=== PATIENT | male | born 1935 | race Caucasian/White ===

== ENCOUNTER 2017-02-03 14:32 | Emergency (ER) | payer MEDICARE, OTHER ==
--- NOTE | 2017-02-03 16:27 | ED Physician Documentation ---
History of Present Illness - Stated complaint Stated Complaint: R ANKLE INJ - Chief complaint Chief Complaint: Ext Problem - Additonal information Additional information: hx from pt 81 male fell off raised brick wall in his yard and onto his right side injuring R hip knee and ankle, but also hitting the left posterior side of his head and he is on coumadin no LOC no BURNS no neck pain no CP no AP no numbness or weakness Review of Systems Eyes: denies: Loss of vision Ears: denies: Drainage/discharge Nose: denies: Epistaxis Cardiac: denies: Chest pain / pressure Respiratory: denies: Dyspnea GI: denies: Abdominal Pain, Nausea, Vomiting Musculoskeletal: reports: Extremity pain. denies: Neck pain Neurologic: reports: Head injury. denies: Syncope, Headache Endocrine: reports: Easy bruising / bleeding Immunocompromised: denies: Immunocompromised PD PAST MEDICAL HISTORY - Past Medical History Cardiovascular: Coronary artery disease Respiratory: Sleep apnea, CPAP use Neuro: Motion sickness Endocrine/Autoimmune: None GI: GERD : Kidney stones HEENT: Chronic hearing loss Psych: None Musculoskeletal: Gout Derm: None - Past Surgical History Past Surgical History: Yes General: Hiatal hernia repair Cardiovascular: CABG, Valve replacement - Present Medications Home Medications: Ambulatory Orders Medication Instructions Recorded Confirmed Colchicine [Colcrys] 0.6 mg PO DAILY 03/08/14 02/03/17 Omeprazole [PriLOSEC] 20 mg PO BID 03/08/14 02/03/17 Potassium Citrate [Urocit-K] 10 meq PO DAILY 03/08/14 02/03/17 Probenecid 500 mg PO DAILY 03/08/14 02/03/17 Doxazosin [Cardura] 4 mg PO DAILY 12/18/14 02/03/17 Simvastatin [Zocor] 40 mg PO QPM 12/18/14 02/03/17 Loratadine [Loratadine] 10 mg PO DAILY 06/21/16 02/03/17 HYDROcod/ACETAM 5/325 [Teaneck 5/325] 1 ea PO Q6H PRN #15 tablet 02/03/17 Metoprolol Succinate [Toprol Xl] 50 mg PO DAILY 02/03/17 02/03/17 Warfarin Sodium [Coumadin] 7.5 mg PO DAILY 02/03/17 02/03/17 - Allergies Allergies/Adverse Reactions: Allergies Allergy/AdvReac Type Severity Reaction Status Date / Time No Known Drug Allergies Allergy Verified 02/03/17 17:35 - Social History Does the pt smoke?: No Smoking Status: Former smoker Does the pt drink ETOH?: No Does the pt have substance abuse?: No - Immunizations Immunizations are current?: Yes - POLST Patient has POLST: No PD ED PE NORMAL - Vitals Vital signs reviewed: Yes - General General: Alert and oriented X 3 - HEENT HEENT: No: Atraumatic (small abrasion high posterior parietal region, no steiner sign) - Neck Neck: No bony TTP - Cardiac Cardiac: RRR - Respiratory Respiratory: No respiratory distress, Clear bilaterally - Abdomen Abdomen: Soft, Non tender - Extremities Extremities: Other (RLE: hip TTP greater troch not short or roatetd able to range with mild pain, femur NT, knee TTP anselmo jt line, patella TTP small effusion no ACL MCL LCL laxity, prox tib fib NT, ankle effusion lat > medial, TTP anselmo mall lateral . medial, pain to ROM no laxity, foot inc 5th MT NT, MSV intact) Results - Vitals Vitals: Vital Signs - 24 hr 02/03/17 02/03/17 14:47 17:41 Temperature 36.6 C 36.6 C Heart Rate 67 71 Respiratory 16 18 Rate Blood Pressure 118/66 123/69 O2 Saturation 95 95 Oxygen O2 Source Room air - Labs Labs: Laboratory Tests 02/03/17 15:38 Whole Blood INR 2.2 H - Rads (name of study) CTH Radiology: See rad report (no acute) hip Radiology: See rad report (no acute) knee Radiology: See rad report (no acute) ankle Radiology: See rad report (velazco B lateral mall fx, non displaced posterior tibial lip, disruption or lateral ankle mortise with effusion) Departure - Departure Disposition: 01 Home, Self Care Clinical Impression: Ankle fracture, right Qualifiers: Encounter type: initial encounter Fracture type: closed Qualified Code(s): S82.891A - Other fracture of right lower leg, initial encounter for closed fracture Condition: Good Instructions: ED Fx Ankle General, ED Splint Care Fiberglass Follow-Up: [facility] [Provider Group] Prescriptions: HYDROcod/ACETAM 5/325 [Teaneck 5/325] 1 ea PO Q6H PRN #15 tablet PRN Reason: Severe Pain
--- NOTE | 2017-02-03 17:00 | CT Preliminary Report ---
Exam: CT Head W/O IMPRESSION: Generalized age-related cortical atrophic changes without evidence of acute intracranial abnormality. [facility] SITE ID: [id number]
--- NOTE | 2017-02-03 17:03 | CT Report ---
EXAM: CT HEAD EXAM DATE: 02/03/2017 04:45 PM. CLINICAL HISTORY: Fall head injury coumadin. COMPARISON: None. TECHNIQUE: Multiaxial CT images were obtained from the foramen magnum to the vertex. IV contrast: Non e. Reformats: Coronal. In accordance with CT protocol optimization, one or more of the following dose reduction techniques w ere utilized for this exam: automated exposure control, adjustment of mA and/or KV based on patient s ize, or use of iterative reconstructive technique. FINDINGS: Parenchyma: No intraparenchymal hemorrhage. No evidence of mass, midline shift, or CT findings of acu te infarction. Jones-white differentiation is distinct. 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 Extraaxial Spaces: Normal for age. No subdural or epidural collections identified. Ventricles: The ventricles and cortical sulci are enlarged, consistent with age-related tissue loss. Sinuses: Imaged paranasal sinuses, orbits, and mastoids show no significant abnormality. Bones: No evidence of fracture or calvarial defect. IMPRESSION: Generalized age-related cortical atrophic changes without evidence of acute intracranial abnormality. [facility] Referring Provider Line: [phone] SITE ID: [id number]
--- NOTE | 2017-02-03 17:31 | XRAY Preliminary Report ---
Exam: XR Hip w/Pelvis 2-3V RT IMPRESSION: Normal pelvis and hip radiography. [facility] SITE ID: [id number]
--- NOTE | 2017-02-03 17:32 | XRAY Preliminary Report ---
Exam: XR Knee 4 View RT IMPRESSION: Normal knee radiography. [facility] SITE ID: [id number]
--- NOTE | 2017-02-03 17:35 | XRAY Preliminary Report ---
Exam: XR Ankle 3 View RT IMPRESSION: 1. Bacon type B lateral malleolar fracture. 2. Nondisplaced fracture posterior tibial lip. 3. Disruption of the lateral ankle mortise with moderate ankle effusion. [facility] SITE ID: [id number]
[2017-02-03 17:42] VITALS: BP 123/69
--- NOTE | 2017-02-03 17:43 | XRAY Report ---
EXAM: RIGHT KNEE RADIOGRAPHY EXAM DATE: 02/03/2017 05:09 PM. CLINICAL HISTORY: Fall right knee pain. COMPARISON: None. TECHNIQUE: 4 views. FINDINGS: Bones: Normal. No fractures or bone lesions. Joints: Normal. No effusion. No subluxations. Soft Tissues: Normal. No soft tissue swelling. IMPRESSION: Normal knee radiography. [facility] Referring Provider Line: [phone] SITE ID: [id number]
--- NOTE | 2017-02-03 17:43 | XRAY Report ---
EXAM: RIGHT HIP AND PELVIS RADIOGRAPHY EXAM DATE: 02/03/2017 05:09 PM. HISTORY: Fall right hip pain. COMPARISONS: CT abdomen and pelvis 09/22/2009. TECHNIQUE: 1 view of the pelvis and 1 view of the hip. FINDINGS: Bones: Normal. No fracture or bone lesion. Joints: The bilateral hip, pubis symphysis, and sacroiliac joints are preserved. Soft Tissues: Normal. No soft tissue swelling. IMPRESSION: Normal pelvis and hip radiography. [facility] Referring Provider Line: [phone] SITE ID: [id number]
--- NOTE | 2017-02-03 17:44 | XRAY Report ---
EXAM: RIGHT ANKLE RADIOGRAPHY EXAM DATE: 02/03/2017 05:08 PM. CLINICAL HISTORY: Fall right ankle pain. COMPARISON: None. TECHNIQUE: 3 views. FINDINGS: Bones: Acute vertical nondisplaced fracture posterior tibial lip, 10 mm AP dimension. Acute oblique fracture involving the distal fibular diaphysis and metaphysis, extending 3 cm superior to the tibial plafond and inferiorly to the level of the talar dome with 3 mm maximum uniform displa cement. Joints: Widening of the lateral ankle mortise. Moderate ankle effusion. Soft Tissues: Marked edema over the lateral malleolus. IMPRESSION: 1. Bacon type B lateral malleolar fracture. 2. Nondisplaced fracture posterior tibial lip. 3. Disruption of the lateral ankle mortise with moderate ankle effusion. [facility] Referring Provider Line: [phone] SITE ID: [id number]
[2017-02-03] MEDS ORDERED: HYDROcod/ACETAM 5/325 MG TABLET PO STA (18:13)
[2017-02-03] MEDS ORDERED: HYDROcod/ACETAM 5/325 MG TABLET ONE (18:31)
== END 2017-02-03 18:41 | disposition home or self-care (01) ==
LOC: ED 14:32
DX: S82.391A Other fracture of lower end of right tibia, initial encounter for closed fracture (principal); S82.61XA Displaced fracture of lateral malleolus of right fibula, initial encounter for closed fracture; W17.89XA Other fall from one level to another, initial encounter; Y92.017 Garden or yard in single-family (private) house as the place of occurrence of the external cause; I25.10 Atherosclerotic heart disease of native coronary artery without angina pectoris; K21.9 Gastro-esophageal reflux disease without esophagitis; G47.30 Sleep apnea, unspecified; M10.9 Gout, unspecified; Z79.01 Long term (current) use of anticoagulants; Z87.442 Personal history of urinary calculi; Z87.891 Personal history of nicotine dependence
CPT/HCPCS: 70450; 73502; 73564; 73610; 85610; 99283; A9270

== ENCOUNTER 2017-12-27 13:18 | Outpatient (CLI) | payer MEDICARE, OTHER | END 2017-12-27 13:19 | disposition home or self-care (01) | LOC: DI.N 13:18 | PROVIDERS: ATTEND Internal Medicine | DX: Z53.9 Procedure and treatment not carried out, unspecified reason (principal) ==

== ENCOUNTER 2017-12-29 11:53 | Outpatient (CLI) | payer MEDICARE, OTHER ==
--- NOTE | 2017-12-29 13:25 | XRAY Report ---
Procedure Date: 12/29/2017 Accession Number: [id number] / [id number] Procedure: XRN - Chest 2 View X-Ray CPT Code: 82768 FULL RESULT: EXAM: Chest 2 View X-Ray DATE: 12/29/2017 12:10 PM CLINICAL HISTORY: cough COMPARISON: 06/20/2016 TECHNIQUE: 2 views. FINDINGS: Lungs/Pleura: Lungs are hyperinflated, compatible with COPD. Calcified granulomas are stable. No focal consolidation, effusion, or pneumothorax. Mediastinum: Stable postoperative changes. Other: None. IMPRESSION: Hyperinflation, compatible with COPD. No evidence of acute cardiopulmonary disease. [facility]
== END 2017-12-29 11:54 | disposition home or self-care (01) ==
LOC: DI.N 11:53
PROVIDERS: ATTEND Internal Medicine
DX: R91.8 Other nonspecific abnormal finding of lung field (principal)
CPT/HCPCS: 71046

== ENCOUNTER 2019-04-02 10:30 | Outpatient (CLI) | payer MEDICARE, OTHER ==
--- NOTE | 2019-04-03 12:48 | XRAY Report ---
Reason: CALCULUS OF KIDNEY Procedure Date: 04/02/2019 Accession Number: [id number] / [id number] Procedure: XRN - Abdomen 1 View X-Ray CPT Code: 46970 FULL RESULT: EXAM: ABDOMEN RADIOGRAPHY EXAM DATE: 04/02/2019 11:30 AM. CLINICAL HISTORY: Calculus of kidney. COMPARISON: XR ABDOMEN AP (KUB) 12/04/2009 2:35 PM ABD/PEL 09/22/2009 10:37 AM. TECHNIQUE: 1 view. FINDINGS: Bowel Gas Pattern: Within normal limits. No dilated loops. Other: Calcifications project over the left renal hilum, largest 2.6 cm. IMPRESSION: Multiple calcifications over the left renal hilum. [facility]
== END 2019-04-02 10:31 | disposition home or self-care (01) ==
LOC: DI.N 10:30
PROVIDERS: ATTEND Urology
DX: N20.0 Calculus of kidney (principal)
CPT/HCPCS: 74018

== ENCOUNTER 2019-06-27 10:29 | Outpatient (CLI) | payer MEDICARE, OTHER ==
--- NOTE | 2019-06-27 14:40 | XRAY Report ---
Reason: R knee pain Procedure Date: 06/27/2019 Accession Number: [id number] / [id number] Procedure: XRN - Knee 3 View RT CPT Code: Final Report FULL RESULT: EXAM: RIGHT KNEE RADIOGRAPHY EXAM DATE: 06/27/2019 11:06 AM. CLINICAL HISTORY: Right knee pain. COMPARISON: KNEE 4 VIEW RT 02/03/2017 4:41 PM. TECHNIQUE: 3 views. FINDINGS: Bones: Seen on the lateral view only projecting in the superior margin of the patella is a small thin linear calcific or ossific fragment which is nonspecific, 2 mm long, possibly insertional tendinitis or degenerative in nature but a small avulsion donor fragment is not entirely excluded. No fractures or bone lesions. Joints: There is a moderate joint effusion. No dislocation. Soft Tissues: Vascular calcifications are noted. IMPRESSION: Nonspecific calcific fragment seen on the lateral view only along the superior margin of the patella and moderate-sized joint effusion. [facility]
--- NOTE | 2019-06-27 14:42 | XRAY Report ---
Reason: PAIN Procedure Date: 06/27/2019 Accession Number: [id number] / [id number] Procedure: XRN - Tib/Fib RT CPT Code: Final Report FULL RESULT: EXAM: RIGHT TIBIA/FIBULA RADIOGRAPHY EXAM DATE: 06/27/2019 11:07 AM. CLINICAL HISTORY: Pain. COMPARISON: KNEE 3 VIEW RT 06/27/2019 11:06 AM ANKLE 3 VIEW RT 02/03/2017 4:41 PM. TECHNIQUE: 2 views. FINDINGS: Bones: A lateral plate and screw construct with 6 interlocking screws and 2 interfragmentary screws is noted in the distal fibula with the previous fracture no longer visible. No acute fracture is seen. Joints: For findings of the right knee, see separate report. Ankle is within normal limits as visualized. Soft Tissues: Vascular calcifications are noted. IMPRESSION: No fracture of tibia or fibula. [facility]
== END 2019-06-27 10:30 | disposition home or self-care (01) ==
LOC: DI.N 10:29
PROVIDERS: ATTEND Internal Medicine
DX: M25.561 Pain in right knee (principal)

== ENCOUNTER 2020-01-16 10:35 | Outpatient (CLI) | payer MEDICARE, OTHER ==
[2020-01-16 11:56] VITALS: BP 126/68
--- NOTE | 2020-01-16 11:57 | SLEEP CARE CONSULTATION ---
Information from patient questionnaire entered by Quita Barnard. I have reviewed and concur with the information entered by Quita Barnard. This document represents the service I personally performed and the decisions made by me, Raine Umaña, RN, MSN, ROPE TIER. History of Present Illness Service Date and Time: 01/16/2020 1035 Reason for Visit: New patient, Previously diagnosed sleep apnea (Very Severe - AHI - 74.9), sleep apnea on CPAP therapy, Re-establish care Chief Complaint: reports: Other (need new CPAP/ his device stopped working and is currently using a loaner from ) Duration of Symptoms: 23 years Usual bedtime: 9 pm Time it takes to fall asleep: a few minutes Snores at night: Yes (not with CPAP) Observed to quit breathing while asleep: No (with CPAP ) Sleeps alone due to snoring: Yes Number of times waking at night: 1-2 Reasons for waking at night: reports: Bathroom Toss, Turn, or Twitch while sleeping: No Recalls having dreams: No Usually gets out of bed at: 5 am Feels refreshed in the morning: Yes Morning headache: No Sleepy or fatigued during the day: No Ever fallen asleep while driving: No Takes day naps: Yes (every other 15-60 minutes without CPAP. ) Dreams during day naps: No Prior sleep studies: Yes Year and Where: 2006 - [facility] Sleep - Parasomnia Symptoms Ever been unable to move upon waking from sleep: No Walks in sleep: No Talks in sleep: No Ever acted out dreams in sleep: No Ever felt weak in the knees when startled or emotional: No Bothered by creepy, crawly, restless sensations in legs: No Problems with memory or concentration: No CPAP Compliance Data - Data Reviewed with Patient Average duration of nightly device use: SD CHIP is old [employer] Card style, can not be downloaded here Subjective Patient concerns: denies: aerophagia, mask discomfort, air blowing in eyes, mask leak noise, condensation in mask/hose, nasal congestion, dry mouth, nose, throat, epistaxis Observed to snore while using device: No Current pressure setting perceived as: comfortable (14 cmH20) On therapy, patient: reports: sleeping better, awakening more refreshed, being more awake and alert during the day, more rested overall. denies: drowsiness while driving Initial [place] Sleepiness Scale score: 14 (in 2007) Current [place] Sleepiness Scale score: 4 Past Medical History Past Medical History: reports: Gout. denies: Hypertension, Dysphagia, Claustrophobia, Congestive Heart Failure, Diabetes, Stroke, Arthritis, Coronary Heart Disease, Insulin resistance, Arrythmia, Hypothyroidism, Fibromyalgia, Anemia, Anxiety, Impotence, Asthma, Depression, Emphysema, Mood disorder, GERD, Attention deficit, Other (atrial fibrillation 3 years ago - prostrate hypertrophy- high cholesterol ) Social History The patient's occupation is a Retired. Patient is and lives in [place]. Have you smoked in the past 12 months: No Quit date: 40 years ago Alcohol use: No Caffeine use: No Family History Family history of sleep disordered breathing: No Allergies and Home Medications Known drug allergies: No Home medication list reviewed: Yes Allergy and home medication list: patient states he left list at home : verbal recall of daily meds is as follows Zocor HS Probenecid - gout Colchicine -gout potassium citrate new heart rate pill doxazocin - prostrate Review of Systems Weight loss over past 5 years: 10-15 Cardiovascular: reports: other (arrhythmia - atrial fibrillation once 3 years ago). denies: high blood pressure, palpitations, chest pain, irregular heart rate or pulse, leg or foot swelling, have to sleep sitting up Respiratory: denies: shortness of breath, wheeze, sputum production, chronic cough, other Gastrointestinal: denies: heartburn, difficulty swallowing, nausea, vomitting, diarrhea, abdominal pain, other Urinary: reports: incontinence. denies: frequency, urgency, impotence, other Neurological: denies: headaches, seizure, head trauma, disorientation, speech dysfunction, gait or balance problems, fainting or unconsciousness, other Psychiatric: denies: Attention Deficit Hyperactivity, anxiety, depression, mood disorder, claustrophobia, other Ear/Nose/Throat: denies: nasal congestion, sinus problems, nose bleeds, dry mouth/throat, hoarseness, injury to nose, tonsillectomy, wisdom teeth removed, other Endocrine: denies: thyroid disease, history of goiter, sluggishness, too hot or cold, excessive thirst, increased appetite, increased urination, unexplained weakness, other Musculoskeletal: denies: joint pain, neck pain, back pain, joint swelling, muscle pain or cramping, mobility problems, other Physical Exam Blood Pressure: 126/68 Cuff size: long Heart Rate: 75 O2 Saturation: 90 Height: 5 ft 9 in Weight: 192 lb 3.2 oz Body Mass Index: 28.3 BMI Classification: Overweight Neck circumference: 17 HEENT: No craniofacial malformation Nostrils: patent to airflow Mouth and throat: narrow oropharynx Soft palate: long Hard palate: normal Uvula: normal Uvula visualization: 25% Mallampati Class III Tongue: normal in size Tonsils: small Chin and jaw: normal size and position Heart: regular rate and rhythm Lungs: clear bilaterally Abdomen: soft Extremities: no edema or clubbing Impression and Plan 1. Obstructive Sleep Apnea-Hypopnea Syndrome, very severe, with unknown treatment compliance and apnea control as data card old style and unable to read. On CPAP therapy, the patient has better sleep quality and is more rested overall. He is currently using a loaner CPAP as his stopped working. It is the original CPAP about 10-12 years old per patient. Thus I will update his CPAP and set at [id number] as he thinks his CPAP is set at [id number]. Last manual titration study showed best pressure at [id number] in 2011. Process for compliance follow up appointment discussed as well as annual follow up to check effective of treatment and to update his CPAP supplies prescription. Patient's apnea severity and rationale for treatment to reduce apnea, improve sleep quality and reduce cardiovascular and cerebrovascular events was reviewed. I also reviewed the benefit of consistent device use of CPAP fo his arrhythmia. I also advised patient to use CPAP with his naps as well with rationale discussed. * Update CPAP * Changeauto CPAP pressure to 12-16 cmH2O * Notify me if snoring with mask or feeling that the pressure is too much or too little * Attempt to lose some weight * Call this office if any problems using CPAP * Return for follow up in one month after obtains CPAP , or sooner if concerns arise Time Spent with Patient (minutes): 34
== END 2020-01-16 10:36 | disposition home or self-care (01) ==
LOC: SC 10:35
PROVIDERS: ATTEND Nurse Practitioner Family
DX: G47.33 Obstructive sleep apnea (adult) (pediatric) (principal); E66.3 Overweight; Z68.28 Body mass index [BMI] 28.0-28.9, adult
CPT/HCPCS: 99203; G0463; 99212

== ENCOUNTER 2020-04-04 09:32 | Outpatient (CLI) | payer MEDICARE, OTHER ==
--- NOTE | 2020-04-04 10:04 | SLEEP CARE CONSULTATION ---
Information from patient questionnaire entered by Quita Barnard. I have reviewed and concur with the information entered by Quita Barnard. This document represents the service I personally performed and the decisions made by me, Flor Guevara ARNP. History of Present Illness Service Date and Time: 04/04/2020 0932 Previous diagnosis: Very Severe, Obstructive Sleep Apnea-Hypopnea Syndrome AHI: 74.9 (in 2006) Reason for follow up: first compliance after device update Equipment type: CPAP Equipment obtained from: [employer] (getting supplies as needed) Mask style: Full face Backup mask available: Yes (old mask) Last cushion change: couple months Prior sleep studies: Yes Year and Where: 2006 [facility] Sleep Type of Sleep Study: Polysomnography HPI additional information: SHANDRA RASMUSSEN was diagnosed to have very severe, AHI 74.9, obstructive sleep apnea-hypopnea syndrome and returned today for CPAP therapy first compliance after device update follow-up. Sleep Study - Results Prior sleep studies: Yes Year and Where: 2006 [facility] Sleep CPAP Compliance Data - Data Reviewed with Patient Average duration of nightly device use: 6.7 Compliance rate %: 97 Current pressure setting (cmH2O): 12-16 Humidity settin Average residual AHI: 18.1 Compliance data discussion: On discussion with patient, he has seen a number on his machine that shows 9.7 and he thinks this is the pressure which is too low. He does not feel that the mask is uncomfortable and he changes from too low to comfortable when talking about his CPAP pressure. Subjective Patient concerns: reports: mask leak noise (sometimes if on his side), dry mouth, nose, throat (dry mouth). denies: aerophagia, mask discomfort, air blowing in eyes, condensation in mask/hose, nasal congestion, epistaxis, other Observed to snore while using device: No Current pressure setting perceived as: too low On therapy, patient: reports: sleeping better, awakening more refreshed, being more awake and alert during the day, more rested overall. denies: drowsiness while driving Initial [place] Sleepiness Scale score: 14 (in 2006) Current [place] Sleepiness Scale score: 5 Allergies and Home Medications Drug allergies reviewed: Yes (NKDA) Home medication list reviewed: Yes (no changes) Review of Systems Review of systems same as previous: Yes (no changes) Physical Exam Heart Rate: 78 O2 Saturation: 91 Height: 5 ft 9 in Weight: 197 lb Body Mass Index: 29.0 BMI Classification: Overweight Impression and Plan 1. Obstructive Sleep Apnea-Hypopnea Syndrome, very severe, with good treatment compliance and poor apnea control with an elevated residual AHI of 18.1 however this is much lower than his AHI 74.9 on his previous study. On CPAP therapy, there is improved sleep quality and feels more rested overall. Patient having some oral dryness and he was advised to increase the humidity setting on his machine. Oral dryness can be reduced by adjusting humidity setting higher or heated hose lower or by adjusting both settings. I explained to patient how to adjust this on his machine. Patient's apnea severity and rationale for treatment to reduce apnea, improve sleep quality and reduce cardiovascular and cerebrovascular events was reviewed. I also reviewed the benefit of consistent device use of CPAP for his arrhythmia. * Change autoCPAP pressure to 16-18 cmH2O * Notify me if snoring with mask or feeling that the pressure is too much or too little * Attempt to lose weight * Call this office if any problems using CPAP * Return for follow up in 1-2 months, or sooner if concerns arise Visit Type: In Office Time Spent with Patient (minutes): 18 Provider Statement: I spent 100% of the Face to Face Visit with the patient with greater than 50% spent counseling the patient and coordination of care.
== END 2020-04-04 09:33 | disposition home or self-care (01) ==
LOC: SC 09:32
PROVIDERS: ATTEND Nurse Practitioner Family
DX: G47.33 Obstructive sleep apnea (adult) (pediatric) (principal); E66.3 Overweight; Z68.29 Body mass index [BMI] 29.0-29.9, adult
CPT/HCPCS: 99213; G0463; 99212

== ENCOUNTER 2020-05-05 09:27 | Outpatient (CLI) | payer MEDICARE, OTHER | END 2020-05-05 09:28 | disposition home or self-care (01) | LOC: LAB 09:27 | PROVIDERS: ATTEND Internal Medicine | DX: I48.91 Unspecified atrial fibrillation (principal) | CPT/HCPCS: 85610 ==

== ENCOUNTER 2020-06-03 09:28 | Outpatient (CLI) | payer MEDICARE, OTHER ==
--- NOTE | 2020-06-03 10:00 | SLEEP CARE CONSULTATION ---
Information from patient questionnaire entered by Quita Barnard. I have reviewed and concur with the information entered by Quita Barnard. This document represents the service I personally performed and the decisions made by , Flor Guevara ARNP. History of Present Illness Service Date and Time: 06/03/2020927 Previous diagnosis: Very Severe, Obstructive Sleep Apnea-Hypopnea Syndrome AHI: 74.9 (in 2006) Reason for follow up: other (2 month with pressure change) Equipment type: CPAP Equipment obtained from: [employer] (no supplies received yet) Mask style: Full face Backup mask available: Yes (old mask) Last cushion change: last week Prior sleep studies: Yes Year and Where: 2006 - [facility] Sleep HPI additional information: SHANDRA RASMUSSEN was diagnosed to have very severe, AHI 74.9, obstructive sleep apnea-hypopnea syndrome and returned today for CPAP therapy two month pressure change follow-up. CPAP Compliance Data - Data Reviewed with Patient Average duration of nightly device use: 6.95 Compliance rate %: 100 (60 days) Current pressure setting (cmH2O): 16-18 Humidity settin Average residual AHI: 17.6 Central apnea: 0.1 Obstructive apnea: 15.2 Subjective Patient concerns: denies: aerophagia, mask discomfort, air blowing in eyes, mask leak noise, condensation in mask/hose, nasal congestion, dry mouth, nose, throat, epistaxis, other Observed to snore while using device: No Current pressure setting perceived as: comfortable On therapy, patient: reports: sleeping better, awakening more refreshed, being more awake and alert during the day, more rested overall. denies: drowsiness while driving Initial [place] Sleepiness Scale score: 14 (in 2006) Current [place] Sleepiness Scale score: 8 Allergies and Home Medications Drug allergies reviewed: Yes (NKDA) Home medication list reviewed: Yes (no changes) Review of Systems Review of systems same as previous: Yes (no changes) Physical Exam Heart Rate: 81 O2 Saturation: 95 Height: 5 ft 9 in Weight: 197 lb Body Mass Index: 29.0 BMI Classification: Overweight Impression and Plan 1. Obstructive Sleep Apnea-Hypopnea Syndrome, very severe, with good treatment compliance and poor apnea control with an elevated residual AHI of 17.6. This is a good improvement on his original AHI 74.9. On CPAP therapy, the patient has better sleep quality and is more rested overall. I will adjust his APAP pressure to 18-20 cm H20 to try to reduce his residual AHI. Patient states he is not sure his new machine obtained in January is getting up to adequate pressure because the readout only shows pressures up to 9-10 cm H2O. I will have his machine evaluated to ensure it is working properly. He will follow up in 1-2 months for reevaluation. He states that he has not gotten any supplies from current DME. I will have him talk to event coordinator marketing and sales for information on ordering his supplies. Patient's apnea severity and rationale for treatment to reduce apnea, improve sleep quality and reduce cardiovascular and cerebrovascular events was reviewed. I also reviewed the benefit of consistent device use of CPAP for his arrhythmia. * Change auto CPAP pressure to 18-20 cmH2O * Check machine for malfunction * Notify me if snoring with mask or feeling that the pressure is too much or too little * Attempt to lose weight * Call this office if any problems using CPAP * Return for follow up in 1-2 months , or sooner if concerns arise Counseling Topics: Spare mask, Weight loss health impact Visit Type: In Office Time Spent with Patient (minutes): 19 Provider Statement: I spent 100% of the Face to Face Visit with the patient with greater than 50% spent counseling the patient and coordination of care.
== END 2020-06-03 09:29 | disposition home or self-care (01) ==
LOC: SC 09:28
PROVIDERS: ATTEND Nurse Practitioner Family
DX: G47.33 Obstructive sleep apnea (adult) (pediatric) (principal); E66.3 Overweight; Z68.29 Body mass index [BMI] 29.0-29.9, adult
CPT/HCPCS: 99213; G0463; 99212

== ENCOUNTER 2020-07-03 09:30 | Outpatient (CLI) | payer MEDICARE, OTHER ==
--- NOTE | 2020-07-03 10:12 | SLEEP CARE CONSULTATION ---
Information from patient questionnaire entered by Quita Barnard. I have reviewed and concur with the information entered by Quita Barnard. This document represents the service I personally performed and the decisions made by , Flor Guevara ARNP. History of Present Illness Service Date and Time: 07/03/2020929 Previous diagnosis: Very Severe, Obstructive Sleep Apnea-Hypopnea Syndrome AHI: 74.9 (in 2006) Reason for follow up: one month (with pressure change) Equipment type: CPAP Equipment obtained from: [employer] (getting supplies as needed) Mask style: Full face Backup mask available: Yes (old mask) Last cushion change: 1 month Prior sleep studies: Yes Year and Where: 2006 - [facility] Sleep HPI additional information: SHANDRA RASMUSSEN was diagnosed to have very severe, AHI 74.9, obstructive sleep apnea-hypopnea syndrome and returned today for CPAP therapy one month pressure change follow-up. CPAP Compliance Data - Data Reviewed with Patient Average duration of nightly device use: 7 hr 19 min Compliance rate %: 100 Current pressure setting (cmH2O): 18-20 Humidity settin Average residual AHI: 11.4 (unknown events 6.9) Central apnea: 0.1 Obstructive apnea: 4.3 Subjective Patient concerns: denies: aerophagia, mask discomfort, air blowing in eyes, mask leak noise, condensation in mask/hose, nasal congestion, dry mouth, nose, throat, epistaxis, other Observed to snore while using device: No Current pressure setting perceived as: comfortable On therapy, patient: reports: sleeping better, awakening more refreshed, being more awake and alert during the day, more rested overall. denies: drowsiness while driving Initial [place] Sleepiness Scale score: 14 (in 2006) Current [place] Sleepiness Scale score: 4 Allergies and Home Medications Drug allergies reviewed: Yes (NKDA) Home medication list reviewed: Yes (no changes) Review of Systems Review of systems same as previous: Yes (no changes) Physical Exam Heart Rate: 82 O2 Saturation: 96 Height: 5 ft 9 in Weight: 198 lb Body Mass Index: 29.2 BMI Classification: Overweight Impression and Plan 1. Obstructive Sleep Apnea-Hypopnea Syndrome, very severe, with excellent treatment compliance and poor apnea control with elevated residual AHI at 11.4. On CPAP therapy, the patient has better sleep quality and is more rested overall. The patients pressure will be changed to autoCPAP 19-20 cmH20 For elevation of residual AHI. Patient advised to contact me if pressure change is uncomfortable so that it can be adjusted. Goals for apnea control discussed. Patient's apnea severity and rationale for treatment to reduce apnea, improve sleep quality and reduce cardiovascular and cerebrovascular events was reviewed. I also reviewed the benefit of consistent device use of CPAP for arrhythmia. I talked to patient about need a possible titration study but he does not want to stay overnight at the sleep lab for this study. We will try the higher pressure change and I will follow up with him later. * Change auto CPAP pressure to 19-20 cmH2O * Notify me if snoring with mask or feeling that the pressure is too much or too little * Attempt to lose weight * Call this office if any problems using CPAP * Return for follow up in 1-2 months, or sooner if concerns arise Counseling Topics: Spare mask, Weight loss health impact Visit Type: In Office Time Spent with Patient (minutes): 18 Provider Statement: I spent 100% of the Face to Face Visit with the patient with greater than 50% spent counseling the patient and coordination of care.
== END 2020-07-03 09:31 | disposition home or self-care (01) ==
LOC: SC 09:30
PROVIDERS: ATTEND Nurse Practitioner Family
DX: G47.33 Obstructive sleep apnea (adult) (pediatric) (principal); E66.3 Overweight; Z68.29 Body mass index [BMI] 29.0-29.9, adult
CPT/HCPCS: 99213; G0463; 99212

== ENCOUNTER 2020-07-25 09:25 | Outpatient (CLI) | payer MEDICARE, OTHER ==
[2020-07-25 11:38] LABS: BASOPHILS % (AUTO) 0.7 %; EOSINOPHILS # (AUTO) 0.1 10^3/uL (0.0-0.7); EOSINOPHILS % (AUTO) 1.5 %; HGB - HEMOGLOBIN 13.7 g/dL (14.0-18.0); LYMPHOCYTES # (AUTO) 0.8 10^3/uL (1.5-3.5); LYMPHOCYTES % (AUTO) 13.8 %; MEAN CORPUSCULAR HEMOGLOBIN 32.9 pg (27.0-31.0); MEAN CORPUSCULAR VOLUME 99.8 fL (80.0-94.0); MONOCYTES # (AUTO) 0.4 10^3/uL (0.0-1.0); MONOCYTES % (AUTO) 6.8 %; NEUTROPHILS # (AUTO) 4.6 10^3/uL (1.5-6.6); NEUTROPHILS % (AUTO) 76.5 %; PLT - PLATELET COUNT 136 10^3/uL (130-450); RED BLOOD COUNT 4.16 10^6/uL (4.70-6.10); RED CELL DISTRIBUTION WIDTH 13.5 % (12.0-15.0)
[2020-07-25 11:42] LABS: INR 1.8 (0.8-1.2); PT - PROTHROMBIN TIME 19.1 secs (9.9-12.6)
[2020-07-25 12:04] LABS: ALBUMIN 4.3 g/dL (3.2-5.5); ALBUMIN/GLOBULIN RATIO 1.6 (1.0-2.2); ALKALINE PHOSPHATASE 90 IU/L (42-121); ALT ALANINE AMINOTRANSFERASE 29 IU/L (10-60); AST ASPARTATE AMINOTRANSFERASE 30 IU/L (10-42); BILIRUBIN,TOTAL 0.7 mg/dL (0.2-1.0); BUN - BLOOD UREA NITROGEN 21 mg/dL (6-20); CALCIUM 8.7 mg/dL (8.5-10.3); CARBON DIOXIDE - CO2 26 mmol/L (21-32); CHLORIDE 107 mmol/L (101-111); CHOL/HDL RATIO 2.5 (<5.0); CHOLESTEROL 140 mg/dL; CREATININE 1.1 mg/dL (0.6-1.2); GLUCOSE 178 mg/dL (70-100); HDL CHOLESTEROL 55 mg/dL; LDL CHOLESTEROL,CALCULATED 64 mg/dL; LDL/HDL RATIO 1.2 (<3.6); SODIUM 140 mmol/L (135-145); VLDL CHOLESTEROL 21 mg/dL
--- OUTSIDE RECORDS SUMMARY | 2020-07-30 01:32 | EXTERNAL MEDICAL SUMMARY RPT | Continuity of Care Document ---
:1935 Demographics Phone Unavailable Preferred Language Unknown Marital Status Unknown Presybeterian Affiliation Unknown Race Unknown Ethnic Group Unknown Author Organization [place] Address [address] [phone] Phone Care Team Providers Name Role Phone Kanjo Unavailable Unavailable Problems date description facility 2020-05-05 09:27 UNSPECIFIED ATRIAL FIBRILLATION [facility] 2020-07-25 09:25 ESSENTIAL (PRIMARY) HYPERTENSION [facility] 2020-07-25 09:25 PRIMARY PULMONARY HYPERTENSION [facility] 2020-07-25 09:25 UNSPECIFIED ATRIAL FIBRILLATION [facility] 2020-07-25 09:25 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, UNSPECIFIED 2020-07-25 09:25 BENIGN PROSTATIC HYPERPLASIA [facility] WITHOUT LOWER URINRY TRACT SYMP Allergies date description facility NO KNOWN ALLERGIES [facility] CETIRIZINE [facility] LIDOCAINE [facility] CARBIDOPA-LEVODOPA [facility] PAROXETINE HCL [facility] MORPHINE AND RELATED [facility] IODINE [facility] SHELLFISH-DERIVED PRODUCTS [facility] No Known Drug Allergies [facility] Results Social History date description facility [phone]
== END 2020-07-25 09:26 | disposition home or self-care (01) ==
LOC: LAB.N 09:25
PROVIDERS: ATTEND Internal Medicine
DX: I48.91 Unspecified atrial fibrillation (principal); J44.9 Chronic obstructive pulmonary disease, unspecified; I27.0 Primary pulmonary hypertension; N40.0 Benign prostatic hyperplasia without lower urinary tract symptoms; E11.65 Type 2 diabetes mellitus with hyperglycemia; I10 Essential (primary) hypertension
CPT/HCPCS: 36415; 80053; 80061; 83721; 84153; 84443; 85025; 85610; 85651

== ENCOUNTER 2020-08-26 09:27 | Outpatient (CLI) | payer MEDICARE, OTHER ==
--- NOTE | 2020-08-26 10:22 | SLEEP CARE CONSULTATION ---
Information from patient questionnaire entered by Quita Barnard. I have reviewed and concur with the information entered by Quita Barnard. This document represents the service I personally performed and the decisions made by , Flor Guevara ARNP. History of Present Illness Service Date and Time: 08/26/2020926 Previous diagnosis: Very Severe, Obstructive Sleep Apnea-Hypopnea Syndrome AHI: 74.9 (in 2006) Reason for follow up: other (6 week with pressure change) Equipment type: CPAP Equipment obtained from: [employer] (getting supplies as needed) Mask style: Full face Backup mask available: Yes Last cushion change: 2 months ago Prior sleep studies: Yes Year and Where: 2006 - [facility] Sleep HPI additional information: SHANDRA RASMUSSEN was diagnosed to have very severe, AHI 74.9, obstructive sleep apnea-hypopnea syndrome and returned today for CPAP therapy 6 week pressure change follow-up. CPAP Compliance Data - Data Reviewed with Patient Average duration of nightly device use: 7 hr 11 min Compliance rate %: 97 Current pressure setting (cmH2O): 19-20 Humidity settin Average residual AHI: 15.6 Central apnea: 0.2 Obstructive apnea: 14.2 Subjective Patient concerns: reports: mask leak noise. denies: aerophagia, mask discomfort, air blowing in eyes, condensation in mask/hose, nasal congestion, dry mouth, nose, throat, epistaxis, other Observed to snore while using device: No Current pressure setting perceived as: comfortable On therapy, patient: reports: sleeping better, awakening more refreshed, being more awake and alert during the day, more rested overall. denies: drowsiness while driving Initial [place] Sleepiness Scale score: 14 (in 2006) Current [place] Sleepiness Scale score: 0 Allergies and Home Medications Drug allergies reviewed: Yes (NKDA) Home medication list reviewed: Yes (no changes) Review of Systems Review of systems same as previous: Yes (no changes) Physical Exam Heart Rate: 68 O2 Saturation: 95 Height: 5 ft 9 in Weight: 202 lb Body Mass Index: 29.8 BMI Classification: Overweight Impression and Plan 1. Obstructive Sleep Apnea-Hypopnea Syndrome, very severe, with good treatment compliance and fair apnea control with elevated residual AHI. On CPAP therapy, the patient has better sleep quality and is more rested overall. The patient would probably do better with a BIPAP machine but he just replace his machine in 01/2020 and is not eligible for a new machine. The patients pressure will be changed to autoCPAP 15-20 cmH20 and will be tried in a nasal mask for elevation of residual AHI. Patient advised to contact me if pressure change is uncomfortable so that it can be adjusted. Goals for apnea control discussed. He is having issue with the adaptor for the hose on his full face mask is coming off during the night. He states it wakes him up because he has no air. He was advised to try a nasal pillows mask to try to get a better control of his apneas with more concentrated pressure from a nasal mask. He voiced understanding and agreement to try. Patient's apnea severity and rationale for treatment to reduce apnea, improve sleep quality and reduce cardiovascular and cerebrovascular event s was reviewed. I also reviewed the benefit of consistent device use of CPAP for arrhythmia. * Change autoCPAP pressure to 15-20 cmH2O * Try a nasal pillows mask * Notify me if snoring with mask or feeling that the pressure is too much or too little * Attempt to lose weight * Call this office if any problems using CPAP * Return for follow up in 3 months, or sooner if concerns arise Counseling Topics: Spare mask Visit Type: In Office Time Spent with Patient (minutes): 21 Provider Statement: I spent 100% of the Face to Face Visit with the patient with greater than 50% spent counseling the patient and coordination of care.
== END 2020-08-26 09:28 | disposition home or self-care (01) ==
LOC: SC 09:27
PROVIDERS: ATTEND Nurse Practitioner Family
DX: G47.33 Obstructive sleep apnea (adult) (pediatric) (principal); E66.3 Overweight; Z68.29 Body mass index [BMI] 29.0-29.9, adult
CPT/HCPCS: 99213; G0463; 99212

== ENCOUNTER 2020-09-03 08:24 | Outpatient (CLI) | payer MEDICARE, OTHER ==
[2020-09-03 12:08] LABS: BASOPHILS % (AUTO) 0.7 %; EOSINOPHILS # (AUTO) 0.1 10^3/uL (0.0-0.7); HGB - HEMOGLOBIN 13.6 g/dL (14.0-18.0); LYMPHOCYTES # (AUTO) 1.1 10^3/uL (1.5-3.5); LYMPHOCYTES % (AUTO) 19.7 %; MEAN CORPUSCULAR HEMOGLOBIN 32.5 pg (27.0-31.0); MEAN CORPUSCULAR HGB CONC 32.5 g/dL (32.0-36.0); MEAN CORPUSCULAR VOLUME 100.2 fL (80.0-94.0); MEAN PLATELET VOLUME 11.1 fL (7.4-11.4); MONOCYTES # (AUTO) 0.6 10^3/uL (0.0-1.0); MONOCYTES % (AUTO) 10.5 %; NEUTROPHILS # (AUTO) 3.7 10^3/uL (1.5-6.6); NEUTROPHILS % (AUTO) 66.6 %; PLT - PLATELET COUNT 110 10^3/uL (130-450); RED BLOOD COUNT 4.18 10^6/uL (4.70-6.10); RED CELL DISTRIBUTION WIDTH 13.4 % (12.0-15.0); WHITE BLOOD COUNT 5.5 x10^3/uL (4.8-10.8)
[2020-09-03 12:16] LABS: INR 2.2 (0.8-1.2); PT - PROTHROMBIN TIME 23.5 secs (9.9-12.6)
[2020-09-03 12:28] LABS: ALBUMIN 4.4 g/dL (3.2-5.5); ALBUMIN/GLOBULIN RATIO 1.7 (1.0-2.2); ALKALINE PHOSPHATASE 82 IU/L (42-121); ALT ALANINE AMINOTRANSFERASE 30 IU/L (10-60); AST ASPARTATE AMINOTRANSFERASE 30 IU/L (10-42); BILIRUBIN,TOTAL 0.7 mg/dL (0.2-1.0); BUN - BLOOD UREA NITROGEN 18 mg/dL (6-20); CALCIUM 8.7 mg/dL (8.5-10.3); CARBON DIOXIDE - CO2 23 mmol/L (21-32); CHLORIDE 103 mmol/L (101-111); CHOL/HDL RATIO 2.6 (<5.0); CHOLESTEROL 150 mg/dL; GLUCOSE 144 mg/dL (70-100); HDL CHOLESTEROL 58 mg/dL; LDL CHOLESTEROL,CALCULATED 75 mg/dL; LDL/HDL RATIO 1.3 (<3.6); VLDL CHOLESTEROL 17 mg/dL
== END 2020-09-03 08:25 | disposition home or self-care (01) ==
LOC: LAB.N 08:24
PROVIDERS: ATTEND Internal Medicine
DX: I48.91 Unspecified atrial fibrillation (principal); J44.9 Chronic obstructive pulmonary disease, unspecified; N40.0 Benign prostatic hyperplasia without lower urinary tract symptoms; E11.65 Type 2 diabetes mellitus with hyperglycemia; I10 Essential (primary) hypertension; I27.0 Primary pulmonary hypertension
CPT/HCPCS: 36415; 80053; 80061; 83721; 84153; 84443; 85025; 85610; 85651

== ENCOUNTER 2020-11-04 08:14 | Outpatient (CLI) | payer MEDICARE, OTHER ==
[2020-11-04 13:25] LABS: BASOPHILS % (AUTO) 0.7 %; EOSINOPHILS # (AUTO) 0.2 10^3/uL (0.0-0.7); EOSINOPHILS % (AUTO) 2.5 %; HCT - HEMATOCRIT 40.6 % (42.0-52.0); HGB - HEMOGLOBIN 13.2 g/dL (14.0-18.0); LYMPHOCYTES # (AUTO) 1.1 10^3/uL (1.5-3.5); LYMPHOCYTES % (AUTO) 18.6 %; MEAN CORPUSCULAR HEMOGLOBIN 32.5 pg (27.0-31.0); MEAN CORPUSCULAR HGB CONC 32.5 g/dL (32.0-36.0); MEAN PLATELET VOLUME 10.6 fL (7.4-11.4); MONOCYTES # (AUTO) 0.5 10^3/uL (0.0-1.0); MONOCYTES % (AUTO) 8.3 %; NEUTROPHILS # (AUTO) 4.1 10^3/uL (1.5-6.6); NEUTROPHILS % (AUTO) 69.2 %; PLT - PLATELET COUNT 130 10^3/uL (130-450); RED BLOOD COUNT 4.06 10^6/uL (4.70-6.10); RED CELL DISTRIBUTION WIDTH 13.7 % (12.0-15.0); WHITE BLOOD COUNT 5.9 x10^3/uL (4.8-10.8)
[2020-11-04 13:32] LABS: INR 3.6 (0.8-1.2); PT - PROTHROMBIN TIME 37.5 secs (9.9-12.6)
[2020-11-04 13:57] LABS: ALBUMIN 4.4 g/dL (3.2-5.5); ALBUMIN/GLOBULIN RATIO 1.7 (1.0-2.2); ALKALINE PHOSPHATASE 77 IU/L (42-121); ALT ALANINE AMINOTRANSFERASE 28 IU/L (10-60); AST ASPARTATE AMINOTRANSFERASE 30 IU/L (10-42); BILIRUBIN,TOTAL 0.6 mg/dL (0.2-1.0); BUN - BLOOD UREA NITROGEN 23 mg/dL (6-20); CALCIUM 8.9 mg/dL (8.5-10.3); CARBON DIOXIDE - CO2 25 mmol/L (21-32); CHLORIDE 109 mmol/L (101-111); CHOL/HDL RATIO 2.9 (<5.0); CHOLESTEROL 154 mg/dL; GFR - MDRD 71 (>89); GLUCOSE 133 mg/dL (70-100); HDL CHOLESTEROL 53 mg/dL; LDL CHOLESTEROL,CALCULATED 83 mg/dL; LDL/HDL RATIO 1.6 (<3.6); POTASSIUM 4.1 mmol/L (3.5-5.0); SODIUM 142 mmol/L (135-145); TRIGLYCERIDES 89 mg/dL; VLDL CHOLESTEROL 18 mg/dL
== END 2020-11-04 08:15 | disposition home or self-care (01) ==
LOC: LAB.N 08:14
PROVIDERS: ATTEND Internal Medicine
DX: I48.91 Unspecified atrial fibrillation (principal); J44.9 Chronic obstructive pulmonary disease, unspecified; N40.0 Benign prostatic hyperplasia without lower urinary tract symptoms; E11.65 Type 2 diabetes mellitus with hyperglycemia; I27.0 Primary pulmonary hypertension
CPT/HCPCS: 36415; 80053; 80061; 83721; 84153; 84443; 85025; 85610; 85651

== ENCOUNTER 2020-12-04 08:23 | Outpatient (CLI) | payer MEDICARE, OTHER ==
--- NOTE | 2020-12-04 09:00 | SLEEP CARE CONSULTATION ---
Information from patient questionnaire entered by Quita Barnard. I have reviewed and concur with the information entered by Quita Barnard. This document represents the service I personally performed and the decisions made by , Flor Guevara ARNP. History of Present Illness Service Date and Time: 12/04/2020 08 Previous diagnosis: Very Severe, Obstructive Sleep Apnea-Hypopnea Syndrome AHI: 74.9 (in 2006) Reason for follow up: three month Equipment type: CPAP Equipment obtained from: [employer] (getting supplies as needed) Mask style: Full face Backup mask available: Yes (old mask) Prior sleep studies: Yes Year and Where: 2006 - [facility] Sleep Type of Sleep Study: Polysomnography HPI additional information: SHANDRA RASMUSSEN was diagnosed to have very severe, AHI 74.9, obstructive sleep apnea-hypopnea syndrome and returned today for CPAP therapy three month follow- up. CPAP Compliance Data - Data Reviewed with Patient Average duration of nightly device use: 7 hr 7 min Compliance rate %: 94 (90 days) Current pressure setting (cmH2O): 14-20 Humidity settin Average residual AHI: 22.3 Subjective Patient concerns: denies: aerophagia, mask discomfort, air blowing in eyes, mask leak noise, condensation in mask/hose, nasal congestion, dry mouth, nose, throat, epistaxis, other Observed to snore while using device: No Current pressure setting perceived as: comfortable On therapy, patient: reports: sleeping better, awakening more refreshed, being more awake and alert during the day, more rested overall. denies: drowsiness while driving Initial [place] Sleepiness Scale score: 14 (in 2006) Current [place] Sleepiness Scale score: 0 Allergies and Home Medications Home medication list reviewed: Yes (no changes) Review of Systems Review of systems same as previous: Yes (no changes) Physical Exam Heart Rate: 75 O2 Saturation: 98 Height: 5 ft 9 in Weight: 203 lb Body Mass Index: 29.9 BMI Classification: Overweight Impression and Plan 1. Obstructive Sleep Apnea-Hypopnea Syndrome, very severe, with good treatment compliance and fair apnea control with elevated residual AHI. On CPAP therapy, the patient has better sleep quality and is more rested overall. He is still concerned that the pressure he sees when he turns on the machine is not at 14.5 and is saying 9.7. I explained that the pressure setting is at 14-20 cmH2O per his request and was not sure what number he is seeing. He may bring this in to have the clinical research nurse coordinator look at if it still does not change. I discussed with patient that his residual AHI is still elevated and that because his AHI has been better controlled at the 18-20 cmH2O pressure setting in the past we will could change it back to this setting and he agreed to this change. I again asked about a titration study and patient declined at this time. I would need this study to determine if he needs a different type of PAP treatment. Patient's apnea severity and rationale for treatment to reduce apnea, improve sleep quality and reduce cardiovascular and cerebrovascular events was reviewed. I also reviewed the benefit of consistent device use of CPAP for arrhythmia. * Change auto CPAP pressure to 18-20 cmH2O * Notify me if snoring with mask or feeling that the pressure is too much or too little * Attempt to lose weight * Call this office if any problems using CPAP * Return for follow up in 1 year, or sooner if concerns arise Counseling Topics: Spare mask, Weight loss health impact Visit Type: In Office Time Spent with Patient (minutes): 21 Provider Statement: I spent 100% of the Face to Face Visit with the patient with greater than 50% spent counseling the patient and coordination of care.
== END 2020-12-04 08:24 | disposition home or self-care (01) ==
LOC: SC 08:23
PROVIDERS: ATTEND Nurse Practitioner Family
DX: G47.33 Obstructive sleep apnea (adult) (pediatric) (principal); E66.3 Overweight; Z68.29 Body mass index [BMI] 29.0-29.9, adult
CPT/HCPCS: 99213; G0463; 99212

== ENCOUNTER 2020-12-23 08:25 | Outpatient (CLI) | payer MEDICARE, OTHER ==
[2020-12-23 12:07] LABS: BASOPHILS % (AUTO) 0.5 %; EOSINOPHILS # (AUTO) 0.1 10^3/uL (0.0-0.7); EOSINOPHILS % (AUTO) 1.7 %; HCT - HEMATOCRIT 40.2 % (42.0-52.0); LYMPHOCYTES # (AUTO) 1.1 10^3/uL (1.5-3.5); MEAN CORPUSCULAR HEMOGLOBIN 32.2 pg (27.0-31.0); MEAN CORPUSCULAR HGB CONC 32.3 g/dL (32.0-36.0); MEAN CORPUSCULAR VOLUME 99.5 fL (80.0-94.0); MEAN PLATELET VOLUME 10.9 fL (7.4-11.4); MONOCYTES # (AUTO) 0.5 10^3/uL (0.0-1.0); MONOCYTES % (AUTO) 8.2 %; NEUTROPHILS # (AUTO) 4.2 10^3/uL (1.5-6.6); NEUTROPHILS % (AUTO) 70.1 %; PLT - PLATELET COUNT 120 10^3/uL (130-450); RED BLOOD COUNT 4.04 10^6/uL (4.70-6.10); RED CELL DISTRIBUTION WIDTH 13.3 % (12.0-15.0)
[2020-12-23 12:19] LABS: INR 2.9 (0.8-1.2); PT - PROTHROMBIN TIME 30.2 secs (9.9-12.6)
[2020-12-23 12:27] LABS: ALBUMIN 4.2 g/dL (3.2-5.5); ALBUMIN/GLOBULIN RATIO 1.6 (1.0-2.2); ALKALINE PHOSPHATASE 67 IU/L (42-121); ALT ALANINE AMINOTRANSFERASE 30 IU/L (10-60); AST ASPARTATE AMINOTRANSFERASE 29 IU/L (10-42); BILIRUBIN,TOTAL 0.6 mg/dL (0.2-1.0); BUN - BLOOD UREA NITROGEN 20 mg/dL (6-20); CALCIUM 8.9 mg/dL (8.5-10.3); CARBON DIOXIDE - CO2 25 mmol/L (21-32); CHLORIDE 107 mmol/L (101-111); CHOL/HDL RATIO 2.8 (<5.0); CHOLESTEROL 141 mg/dL; CREATININE 1.2 mg/dL (0.6-1.2); GFR - MDRD 57 (>89); GLUCOSE 132 mg/dL (70-100); HDL CHOLESTEROL 51 mg/dL; LDL CHOLESTEROL,CALCULATED 73 mg/dL; LDL/HDL RATIO 1.4 (<3.6); POTASSIUM 4.1 mmol/L (3.5-5.0); SODIUM 143 mmol/L (135-145); TOTAL PROTEIN 6.8 g/dL (6.7-8.2); TRIGLYCERIDES 87 mg/dL; VLDL CHOLESTEROL 17 mg/dL
== END 2020-12-23 08:26 | disposition home or self-care (01) ==
LOC: LAB.N 08:25
PROVIDERS: ATTEND Internal Medicine
DX: I48.91 Unspecified atrial fibrillation (principal); J44.9 Chronic obstructive pulmonary disease, unspecified; N40.0 Benign prostatic hyperplasia without lower urinary tract symptoms; E11.65 Type 2 diabetes mellitus with hyperglycemia; I27.0 Primary pulmonary hypertension
CPT/HCPCS: 36415; 80053; 80061; 83721; 84153; 84443; 85025; 85610; 85651

== ENCOUNTER 2021-06-08 08:00 | Outpatient (CLI) | payer MEDICARE, OTHER ==
[2021-06-08 12:53] LABS: BASOPHILS % (AUTO) 0.7 %; EOSINOPHILS # (AUTO) 0.1 10^3/uL (0.0-0.7); EOSINOPHILS % (AUTO) 1.5 %; HCT - HEMATOCRIT 42.2 % (42.0-52.0); HGB - HEMOGLOBIN 13.8 g/dL (14.0-18.0); LYMPHOCYTES # (AUTO) 0.9 10^3/uL (1.5-3.5); MEAN CORPUSCULAR HEMOGLOBIN 32.5 pg (27.0-31.0); MEAN CORPUSCULAR HGB CONC 32.7 g/dL (32.0-36.0); MEAN CORPUSCULAR VOLUME 99.3 fL (80.0-94.0); MEAN PLATELET VOLUME 10.7 fL (7.4-11.4); MONOCYTES # (AUTO) 0.5 10^3/uL (0.0-1.0); MONOCYTES % (AUTO) 7.5 %; NEUTROPHILS # (AUTO) 4.5 10^3/uL (1.5-6.6); NEUTROPHILS % (AUTO) 74.6 %; PLT - PLATELET COUNT 141 10^3/uL (130-450); RED BLOOD COUNT 4.25 10^6/uL (4.70-6.10); RED CELL DISTRIBUTION WIDTH 13.3 % (12.0-15.0)
[2021-06-08 12:59] LABS: PT - PROTHROMBIN TIME 33.4 secs (9.9-12.6)
[2021-06-08 13:04] LABS: CREATININE,URINE 83.8 mg/dL; MICROALBUM/CREATININE RATIO,UR 15.5 ug/mg (<30.0); MICROALBUMIN,URINE 1.3 mg/dL (0-300.0)
[2021-06-08 13:18] LABS: ALBUMIN 4.5 g/dL (3.2-5.5); ALBUMIN/GLOBULIN RATIO 1.6 (1.0-2.2); BILIRUBIN,TOTAL 0.7 mg/dL (0.2-1.0); CALCIUM 9.1 mg/dL (8.5-10.3); CREATININE 1.1 mg/dL (0.6-1.2); TOTAL PROTEIN 7.4 g/dL (6.7-8.2)
[2021-06-08 13:23] LABS: ESTIMATED AVERAGE GLUCOSE 160 mg/dL (70-100); HEMOGLOBIN A1c% 7.2 % (4.27-6.07)
== END 2021-06-08 23:59 | disposition home or self-care (01) ==
LOC: LAB.N 08:00
PROVIDERS: ATTEND Internal Medicine
DX: E11.9 Type 2 diabetes mellitus without complications (principal); E55.9 Vitamin D deficiency, unspecified; E78.5 Hyperlipidemia, unspecified; I10 Essential (primary) hypertension; I48.91 Unspecified atrial fibrillation; Z79.899 Other long term (current) drug therapy
CPT/HCPCS: 36415; 80053; 82043; 82570; 83036; 84443; 85025; 85610

== ENCOUNTER 2021-11-14 09:42 | Outpatient (CLI) | payer MEDICARE, OTHER ==
--- NOTE | 2021-11-14 10:12 | CT Report ---
PROCEDURE: HEAD WO INDICATIONS: AMNESTIC DISORDER DUE TO KNOWN PHYSIOLOGICAL CONDI TECHNIQUE: Noncontrast 4.5 mm thick angled axial sections acquired from the foramen magnum to the vertex. For r adiation dose reduction, the following was used: automated exposure control, adjustment of mA and/or kV according to patient size. COMPARISON: None. FINDINGS: Image quality: Excellent. The ventricular system and cortical sulci demonstrate atrophy, consistent for patient's stated age. There are areas of hypodensity in the periventricular and subcortical white matter. There is no acut e intra or extra-axial fluid collection. No acute hemorrhage, mass lesion or midline shift. Brainst em is unremarkable. Globes are symmetrical. Sinuses are aerated. Osseous structures are intact. IMPRESSION: 1. No acute intracranial process. 2. Moderate atrophy and chronic microvascular ischemic changes. Reviewed by: Eliana Hand MD on 11/14/2021 10:10 AM PDT Approved by: Eliana Hand MD on 11/14/2021 10:10 AM PDT Station ID: [id number]
== END 2021-11-14 09:43 | disposition home or self-care (01) ==
LOC: DI 09:42
PROVIDERS: ATTEND Internal Medicine
DX: G31.9 Degenerative disease of nervous system, unspecified (principal); I67.82 Cerebral ischemia; F04 Amnestic disorder due to known physiological condition

== ENCOUNTER 2022-02-09 10:27 | Outpatient (CLI) | payer MEDICARE, OTHER ==
[2022-02-09 11:15] VITALS: BP 130/83
--- NOTE | 2022-02-09 11:15 | SLEEP CARE CONSULTATION ---
Information from patient questionnaire entered by Rui Robles MA. I have reviewed and concur with the information entered by Rui Robles MA. This document represents the service I personally performed and the decisions made by , Flor Guevara ARNP. History of Present Illness Service Date and Time: 02/09/2022 1027 Previous diagnosis: Very Severe, Obstructive Sleep Apnea-Hypopnea Syndrome AHI: 74.9 (in 2006) Reason for follow up: annual (LAST SEEN 11/2020, ALISIA, HESS 01/31/2020, ) Equipment type: CPAP Equipment obtained from: [employer] (getting supplies as needed) Mask style: Full face Backup mask available: Yes (other mask) Prior sleep studies: Yes Year and Where: 2006 [facility] Type of Sleep Study: Polysomnography HPI additional information: SHANDRA RASMUSSEN was diagnosed to have very severe, AHI 74.9, obstructive sleep apnea-hypopnea syndrome and returned today for CPAP therapy annual follow-up. Sleep Study - Results Type of Sleep Study: Polysomnography Prior sleep studies: Yes Year and Where: 2006 [facility] Sleep CPAP Compliance Data - Data Reviewed with Patient Average duration of nightly device use: 6 HOURS 5 MINUTES Compliance rate %: 81 (11/11/21-02/08/22) Current pressure setting (cmH2O): 18-20 Average residual AHI: 25.6 Central apnea: .0 Obstructive apnea: .3 Hypopnea: .4 Average large leak: 71.8 Subjective Patient concerns: denies: aerophagia, mask discomfort, air blowing in eyes, mask leak noise, condensation in mask/hose, nasal congestion, dry mouth, nose, throat, epistaxis, other Observed to snore while using device: No Current pressure setting perceived as: too low (at night onset) On therapy, patient: reports: sleeping better, awakening more refreshed, being more awake and alert during the day, more rested overall. denies: drowsiness while driving Initial [place] Sleepiness Scale score: 14 (in 2006) Current [place] Sleepiness Scale score: 8 (02/09/2022) Allergies and Home Medications Drug allergies reviewed: Yes (NKDA) Home medication list reviewed: Yes (no changes) Allergy and home medication list: Allergies No Known Drug Allergies Allergy (Verified 02/03/17 17:35) Review of Systems Review of systems same as previous: Yes (no changes) Physical Exam Vital signs obtained and entered by: RASHEL PEREZ Blood Pressure: 130/83 (RESP 22, PULSE 59, RIGHT,) Cuff size: wrist Heart Rate: 56 O2 Saturation: 95 (PAPER MASK) Height: 5 ft 9 in Weight: 202 lb (CLOTHES) Weight change since last visit: MAINTAINING Body Mass Index: 29.8 BMI Classification: Overweight Impression and Plan 1. Obstructive Sleep Apnea-Hypopnea Syndrome, very severe, with good treatment compliance and fair apnea control with elevated residual AHI. On CPAP therapy, the patient has better sleep quality and is more rested overall. Patient states he is more tired during the day. His residual AHI is elevated. I asked again about getting a titration study and he finally agreed. I will have him go to [facility] since our titration machines are still not replaced. I will follow up with him after the study. Patient's apnea severity and rationale for treatment to reduce apnea, improve sleep quality and reduce cardiovascular and cerebrovascular events was reviewed. I also reviewed the benefit of consistent device use of CPAP for arrhythmia. Patient was encouraged to try to lose weight. * Continue auto CPAP pressure at 18-20 cmH2O * Titration study at [facility] * Notify me if snoring with mask or feeling that the pressure is too much or too little * Attempt to lose weight * Call this office if any problems using CPAP * Return for follow up after titration study, or sooner if concerns arise Counseling Topics: Spare mask, Weight loss health impact Visit Type: In Office Time Spent with Patient (minutes): 20 Provider Statement: I spent 100% of the Face to Face Visit with the patient with greater than 50% spent counseling the patient and coordination of care.
== END 2022-02-09 10:28 | disposition home or self-care (01) ==
LOC: SC 10:27
PROVIDERS: ATTEND Nurse Practitioner Family
DX: G47.33 Obstructive sleep apnea (adult) (pediatric) (principal); E66.3 Overweight; Z68.29 Body mass index [BMI] 29.0-29.9, adult
CPT/HCPCS: 99213; G0463; 99212

== ENCOUNTER 2022-03-23 10:52 | Outpatient (CLI) | payer MEDICARE, OTHER ==
--- NOTE | 2022-03-23 22:02 | XRAY Report ---
PROCEDURE: Cervical Spine 2 View INDICATIONS: NECK PX TECHNIQUE: 3 view(s) of the cervical spine were acquired. COMPARISON: X-ray cervical spine 06/15/2010 FINDINGS: Bones: No fractures or dislocations to the C7-T1 level. The lateral masses of C1 appear intact on t he odontoid view. No suspicious bony lesions. Multilevel degenerative disc space narrowing is prese nt most severe at C5-6 and C6-7. Multilevel uncovertebral hypertrophy is present. Soft tissues: No prevertebral soft tissue swelling. IMPRESSION: Multilevel degenerative changes as above. Reviewed by: Eliana Hand MD on 03/23/2022 10:01 PM PDT Approved by: Eliana Hand MD on 03/23/2022 10:01 PM PDT Station ID: [id number]
== END 2022-03-23 10:53 | disposition home or self-care (01) ==
LOC: DI.N 10:52
PROVIDERS: ATTEND Internal Medicine
DX: M47.812 Spondylosis without myelopathy or radiculopathy, cervical region (principal)

== ENCOUNTER 2022-04-05 15:44 | Outpatient (CLI) | payer MEDICARE, OTHER | END 2022-04-05 23:59 | disposition left against medical advice (07) | LOC: EMS 15:44 | DX: Z03.89 Encounter for observation for other suspected diseases and conditions ruled out (principal); Z79.01 Long term (current) use of anticoagulants ==

== ENCOUNTER 2022-05-04 13:29 | Outpatient (CLI) | payer MEDICARE, OTHER ==
[2022-05-04] MEDS ORDERED: iohexoL-300 100 ML VIAL ONE (15:40)
[2022-05-04] MEDS ORDERED: iohexoL-300 100 ML VIAL IVP ONE (23:55)
--- NOTE | 2022-05-05 08:54 | CT Report ---
PROCEDURE: IVP INDICATIONS: HEMATURIA CONTRAST: 140 ml Omnipaque 300 TECHNIQUE: After the administration of oral and intravenous contrast, 5 mm thick sections acquired from the diap hragms to the symphysis. 5 mm thick coronal and sagittal reformats were acquired. For radiation dos e reduction, the following was used: automated exposure control, adjustment of mA and/or kV accordin g to patient size. COMPARISON: None FINDINGS: Image quality: Moderate motion degradation Lower chest: Suspected basal scarring/atelectasis. Aortic valve replacement. Coronary disease. Solid organs: Liver is unremarkable. Cholelithiasis. No biliary ductal dilation. Mild to moderate guy creatic parenchymal atrophy. Normal-sized spleen. No adrenal nodules. There is a staghorn calculus in the left renal pelvis measuring 2.5 x 2.9 x 2.0 cm. There is only mi ld left caliectasis. Few punctate nonobstructing calculi are seen in the right kidney. No right hydro nephrosis. No ureteral filling defect. No measurable bladder mass. Bosniak 1 and 2 renal lesions are present, for which no dedicated follow-up is necessary per 2019 proposed guidelines. Vessels and lymph nodes: No abdominal aortic aneurysm. No pathologic adenopathy. Bowel and peritoneum: Tiny hiatal hernia. No bowel obstruction. No pathologic ascites. Body wall: Unremarkable Pelvis: Prostate is not well evaluated. Borderline prostatomegaly. Bones: Scattered degenerative changes. No acute or suspicious osseous finding. Some rib deformities a re probably nonacute, correlate for point tenderness. L1 Schmorl's node. IMPRESSION: Moderate motion degraded exam. Staghorn calculus in the left kidney as above, with only mild upstream caliectasis.. Nonobstructing p unctate right calculi are present. Lower tract disease could be better evaluated with cystoscopy if n eeded. Other incidental findings above. Reviewed by: Michael Veliz MD on 05/05/2022 8:52 AM PDT Approved by: Michael Veliz MD on 05/05/2022 8:52 AM PDT Station ID: [id number]
== END 2022-05-04 13:30 | disposition home or self-care (01) ==
LOC: LAB 13:29
PROVIDERS: ATTEND Urology
DX: N20.0 Calculus of kidney (principal)
CPT/HCPCS: 36415; 74178; 82565; 84520; Q9967

== ENCOUNTER 2022-06-11 13:31 | Outpatient (CLI) | payer MEDICARE, OTHER | END 2022-06-11 13:32 | disposition EMS.NT | LOC: EMS 13:31 | DX: Z03.89 Encounter for observation for other suspected diseases and conditions ruled out (principal) ==

== ENCOUNTER 2022-06-14 08:08 | Outpatient (CLI) | payer MEDICARE, OTHER ==
[2022-06-14 12:29] LABS: BASOPHILS # (AUTO) 0.1 10^3/uL (0.0-0.1); BASOPHILS % (AUTO) 0.7 %; EOSINOPHILS # (AUTO) 0.1 10^3/uL (0.0-0.7); EOSINOPHILS % (AUTO) 1.1 %; HCT - HEMATOCRIT 37.4 % (42.0-52.0); HGB - HEMOGLOBIN 12.3 g/dL (14.0-18.0); LYMPHOCYTES # (AUTO) 1.5 10^3/uL (1.5-3.5); LYMPHOCYTES % (AUTO) 21.7 %; MEAN CORPUSCULAR HEMOGLOBIN 33.5 pg (27.0-31.0); MEAN CORPUSCULAR HGB CONC 32.9 g/dL (32.0-36.0); MEAN CORPUSCULAR VOLUME 101.9 fL (80.0-94.0); MEAN PLATELET VOLUME 10.2 fL (7.4-11.4); MONOCYTES # (AUTO) 0.6 10^3/uL (0.0-1.0); MONOCYTES % (AUTO) 8.9 %; NEUTROPHILS # (AUTO) 4.7 10^3/uL (1.5-6.6); NEUTROPHILS % (AUTO) 66.9 %; PLT - PLATELET COUNT 146 10^3/uL (130-450); RED BLOOD COUNT 3.67 10^6/uL (4.70-6.10); RED CELL DISTRIBUTION WIDTH 14.1 % (12.0-15.0); WHITE BLOOD COUNT 7.1 x10^3/uL (4.8-10.8)
[2022-06-14 12:44] LABS: INR 3.7 (0.8-1.2); PT - PROTHROMBIN TIME 38.6 secs (9.9-12.6)
[2022-06-14 12:51] LABS: ALBUMIN 3.9 g/dL (3.2-5.5); ALBUMIN/GLOBULIN RATIO 1.3 (1.0-2.2); ALKALINE PHOSPHATASE 74 IU/L (42-121); ALT ALANINE AMINOTRANSFERASE 33 IU/L (10-60); AST ASPARTATE AMINOTRANSFERASE 31 IU/L (10-42); BILIRUBIN,TOTAL 0.8 mg/dL (0.2-1.0); BUN - BLOOD UREA NITROGEN 15 mg/dL (6-20); CALCIUM 8.9 mg/dL (8.5-10.3); CARBON DIOXIDE - CO2 27 mmol/L (21-32); CHLORIDE 106 mmol/L (101-111); CHOL/HDL RATIO 5.7 (<5.0); CHOLESTEROL 260 mg/dL; CREATININE 0.9 mg/dL (0.6-1.2); GFR - MDRD 80 (>89); GLUCOSE 125 mg/dL (70-100); HDL CHOLESTEROL 46 mg/dL; LDL CHOLESTEROL,CALCULATED 163 mg/dL; LDL/HDL RATIO 3.5 (<3.6); POTASSIUM 3.7 mmol/L (3.5-5.0); SODIUM 142 mmol/L (135-145); TOTAL PROTEIN 6.8 g/dL (6.7-8.2); TRIGLYCERIDES 255 mg/dL; VLDL CHOLESTEROL 51 mg/dL
== END 2022-06-14 08:09 | disposition home or self-care (01) ==
LOC: LAB.N 08:08
PROVIDERS: ATTEND Internal Medicine
DX: I48.91 Unspecified atrial fibrillation (principal); J44.9 Chronic obstructive pulmonary disease, unspecified; N40.0 Benign prostatic hyperplasia without lower urinary tract symptoms; E11.65 Type 2 diabetes mellitus with hyperglycemia; I27.0 Primary pulmonary hypertension
CPT/HCPCS: 36415; 80053; 80061; 83721; 84153; 84443; 85025; 85610; 85651

== ENCOUNTER 2022-06-24 08:35 | Outpatient (CLI) | payer MEDICARE, OTHER ==
[2022-06-24 08:58] LABS: BASOPHILS % (AUTO) 0.6 %; EOSINOPHILS % (AUTO) 0.1 %; HCT - HEMATOCRIT 36.1 % (42.0-52.0); HGB - HEMOGLOBIN 11.7 g/dL (14.0-18.0); LYMPHOCYTES # (AUTO) 0.7 10^3/uL (1.5-3.5); LYMPHOCYTES % (AUTO) 10.4 %; MEAN CORPUSCULAR HEMOGLOBIN 33.6 pg (27.0-31.0); MEAN CORPUSCULAR HGB CONC 32.4 g/dL (32.0-36.0); MEAN CORPUSCULAR VOLUME 103.7 fL (80.0-94.0); MEAN PLATELET VOLUME 9.5 fL (7.4-11.4); MONOCYTES # (AUTO) 0.5 10^3/uL (0.0-1.0); MONOCYTES % (AUTO) 7.5 %; NEUTROPHILS # (AUTO) 5.7 10^3/uL (1.5-6.6); PLT - PLATELET COUNT 155 10^3/uL (130-450); RED BLOOD COUNT 3.48 10^6/uL (4.70-6.10); RED CELL DISTRIBUTION WIDTH 14.2 % (12.0-15.0)
[2022-06-24 09:04] LABS: INR 2.4 (0.8-1.2); PT - PROTHROMBIN TIME 25.7 secs (9.9-12.6)
[2022-06-24 09:08] LABS: CALCIUM 8.9 mg/dL (8.5-10.3); POTASSIUM 3.9 mmol/L (3.5-5.0)
[2022-06-24 11:38] LABS: ESTIMATED AVERAGE GLUCOSE 123 mg/dL (70-100); HEMOGLOBIN A1c% 5.9 % (4.27-6.07)
== END 2022-06-24 08:36 | disposition home or self-care (01) ==
LOC: LAB 08:35
PROVIDERS: ATTEND Internal Medicine
DX: I10 Essential (primary) hypertension (principal); E11.9 Type 2 diabetes mellitus without complications; Z79.899 Other long term (current) drug therapy; I25.10 Atherosclerotic heart disease of native coronary artery without angina pectoris; I48.91 Unspecified atrial fibrillation
CPT/HCPCS: 36415; 80048; 83036; 83880; 85025; 85610

== ENCOUNTER 2022-09-11 09:09 | Outpatient (CLI) | payer MEDICARE, OTHER | END 2022-09-11 09:10 | disposition EMS.NT | LOC: EMS 09:09 | DX: Z03.89 Encounter for observation for other suspected diseases and conditions ruled out (principal); Z79.01 Long term (current) use of anticoagulants ==

== ENCOUNTER 2022-10-27 08:26 | Outpatient (CLI) | payer MEDICARE, OTHER ==
[2022-10-27 08:53] LABS: BASOPHILS % (AUTO) 0.8 %; EOSINOPHILS # (AUTO) 0.1 10^3/uL (0.0-0.7); HCT - HEMATOCRIT 41.7 % (42.0-52.0); HGB - HEMOGLOBIN 13.8 g/dL (14.0-18.0); LYMPHOCYTES # (AUTO) 1.3 10^3/uL (1.5-3.5); LYMPHOCYTES % (AUTO) 25.5 %; MEAN CORPUSCULAR HEMOGLOBIN 33.4 pg (27.0-31.0); MEAN CORPUSCULAR HGB CONC 33.1 g/dL (32.0-36.0); MEAN PLATELET VOLUME 10.4 fL (7.4-11.4); MONOCYTES # (AUTO) 0.4 10^3/uL (0.0-1.0); MONOCYTES % (AUTO) 6.9 %; NEUTROPHILS # (AUTO) 3.3 10^3/uL (1.5-6.6); NEUTROPHILS % (AUTO) 64.4 %; PLT - PLATELET COUNT 115 10^3/uL (130-450); RED BLOOD COUNT 4.13 10^6/uL (4.70-6.10); RED CELL DISTRIBUTION WIDTH 13.3 % (12.0-15.0); WHITE BLOOD COUNT 5.1 x10^3/uL (4.8-10.8)
[2022-10-27 09:30] LABS: INR 3.3 (0.8-1.2); PT - PROTHROMBIN TIME 34.6 secs (9.9-12.6)
[2022-10-27 09:38] LABS: ALBUMIN 4.1 g/dL (3.2-5.5); ALBUMIN/GLOBULIN RATIO 1.6 (1.0-2.2); ALKALINE PHOSPHATASE 74 IU/L (42-121); ALT ALANINE AMINOTRANSFERASE 44 IU/L (10-60); AST ASPARTATE AMINOTRANSFERASE 39 IU/L (10-42); BILIRUBIN,TOTAL 0.9 mg/dL (0.2-1.0); BUN - BLOOD UREA NITROGEN 18 mg/dL (6-20); CALCIUM 8.6 mg/dL (8.5-10.3); CARBON DIOXIDE - CO2 25 mmol/L (21-32); CHLORIDE 108 mmol/L (101-111); CHOL/HDL RATIO 2.7 (<5.0); CHOLESTEROL 137 mg/dL; CREATININE 1.1 mg/dL (0.6-1.2); GFR - MDRD 63 (>89); GLUCOSE 117 mg/dL (70-100); HDL CHOLESTEROL 50 mg/dL; LDL CHOLESTEROL,CALCULATED 59 mg/dL; LDL/HDL RATIO 1.2 (<3.6); POTASSIUM 3.5 mmol/L (3.5-5.0); SODIUM 141 mmol/L (135-145); TOTAL PROTEIN 6.7 g/dL (6.7-8.2); TRIGLYCERIDES 140 mg/dL; VLDL CHOLESTEROL 28 mg/dL
== END 2022-10-27 08:27 | disposition home or self-care (01) ==
LOC: LAB 08:26
PROVIDERS: ATTEND Internal Medicine
DX: I48.91 Unspecified atrial fibrillation (principal); J44.9 Chronic obstructive pulmonary disease, unspecified; N40.0 Benign prostatic hyperplasia without lower urinary tract symptoms; E11.65 Type 2 diabetes mellitus with hyperglycemia; I27.0 Primary pulmonary hypertension
CPT/HCPCS: 36415; 80053; 80061; 83721; 84153; 84443; 85025; 85610; 85651

== ENCOUNTER 2022-12-06 08:11 | Outpatient (CLI) | payer MEDICARE, OTHER ==
[2022-12-06 08:35] LABS: BASOPHILS # (AUTO) 0.1 10^3/uL (0.0-0.1); BASOPHILS % (AUTO) 0.8 %; EOSINOPHILS # (AUTO) 0.1 10^3/uL (0.0-0.7); EOSINOPHILS % (AUTO) 1.6 %; HCT - HEMATOCRIT 41.4 % (42.0-52.0); HGB - HEMOGLOBIN 13.9 g/dL (14.0-18.0); LYMPHOCYTES # (AUTO) 1.5 10^3/uL (1.5-3.5); LYMPHOCYTES % (AUTO) 24.3 %; MEAN CORPUSCULAR HEMOGLOBIN 33.5 pg (27.0-31.0); MEAN CORPUSCULAR HGB CONC 33.6 g/dL (32.0-36.0); MEAN CORPUSCULAR VOLUME 99.8 fL (80.0-94.0); MONOCYTES # (AUTO) 0.5 10^3/uL (0.0-1.0); MONOCYTES % (AUTO) 8.3 %; NEUTROPHILS # (AUTO) 4.1 10^3/uL (1.5-6.6); NEUTROPHILS % (AUTO) 64.5 %; PLT - PLATELET COUNT 119 10^3/uL (130-450); RED BLOOD COUNT 4.15 10^6/uL (4.70-6.10); RED CELL DISTRIBUTION WIDTH 12.8 % (12.0-15.0); WHITE BLOOD COUNT 6.3 x10^3/uL (4.8-10.8)
[2022-12-06 08:41] LABS: INR 2.1 (0.8-1.2); PT - PROTHROMBIN TIME 22.3 secs (9.9-12.6)
[2022-12-06 08:56] LABS: ALBUMIN 4.1 g/dL (3.2-5.5); ALBUMIN/GLOBULIN RATIO 1.4 (1.0-2.2); ALKALINE PHOSPHATASE 78 IU/L (42-121); ALT ALANINE AMINOTRANSFERASE 75 IU/L (10-60); AST ASPARTATE AMINOTRANSFERASE 54 IU/L (10-42); BILIRUBIN,TOTAL 0.8 mg/dL (0.2-1.0); BUN - BLOOD UREA NITROGEN 17 mg/dL (6-20); CALCIUM 9.1 mg/dL (8.5-10.3); CARBON DIOXIDE - CO2 27 mmol/L (21-32); CHLORIDE 108 mmol/L (101-111); CHOL/HDL RATIO 3.1 (<5.0); CHOLESTEROL 156 mg/dL; CREATININE 1.1 mg/dL (0.6-1.2); GFR - MDRD 63 (>89); GLUCOSE 120 mg/dL (70-100); HDL CHOLESTEROL 51 mg/dL; LDL CHOLESTEROL,CALCULATED 65 mg/dL; LDL/HDL RATIO 1.3 (<3.6); POTASSIUM 4.1 mmol/L (3.5-5.0); SODIUM 143 mmol/L (135-145); TOTAL PROTEIN 7.1 g/dL (6.7-8.2); TRIGLYCERIDES 202 mg/dL; VLDL CHOLESTEROL 40 mg/dL
== END 2022-12-06 08:12 | disposition home or self-care (01) ==
LOC: LAB 08:11
PROVIDERS: ATTEND Internal Medicine
DX: I48.91 Unspecified atrial fibrillation (principal); J44.9 Chronic obstructive pulmonary disease, unspecified; N40.0 Benign prostatic hyperplasia without lower urinary tract symptoms; E11.65 Type 2 diabetes mellitus with hyperglycemia; I10 Essential (primary) hypertension
CPT/HCPCS: 36415; 80053; 80061; 83721; 84153; 84443; 85025; 85610; 85651

== ENCOUNTER 2023-03-22 08:28 | Outpatient (CLI) | payer MEDICARE, OTHER | END 2023-03-22 23:59 | disposition EMS.NT | LOC: EMS 08:28 | DX: Z03.89 Encounter for observation for other suspected diseases and conditions ruled out (principal) ==

== ENCOUNTER 2023-04-30 06:39 | Outpatient (CLI) | payer MEDICARE, OTHER | END 2023-04-30 06:40 | disposition EMS.NT | LOC: EMS 06:39 | DX: Z03.89 Encounter for observation for other suspected diseases and conditions ruled out (principal); Z79.01 Long term (current) use of anticoagulants ==

== ENCOUNTER 2023-05-19 05:40 | Emergency (ER) | payer MEDICARE, OTHER ==
--- NOTE | 2023-05-19 06:15 | ED Physician Documentation ---
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 also with L forearm and elbow pain from a separate recent fall. denies pain anywhere. AOX2, which is baseline per . PD PAST MEDICAL HISTORY - Past Medical History Cardiovascular: Coronary artery disease, Valve disorder Respiratory: Sleep apnea, CPAP use Neuro: Other Endocrine/Autoimmune: Type 2 diabetes GI: GERD : Kidney stones HEENT: Chronic hearing loss Psych: Depression Musculoskeletal: Gout Derm: None - Past Surgical History Past Surgical History: Yes General: Hiatal hernia repair Cardiovascular: CABG, Valve replacement - Present Medications Home Medications: Ambulatory Orders Medication Instructions Recorded Confirmed Colchicine [Colcrys] 0.6 mg PO DAILY 03/08/14 04/05/22 Omeprazole [PriLOSEC] 20 mg PO BID 03/08/14 04/05/22 Potassium Citrate [Urocit-K] 10 meq PO DAILY 03/08/14 04/05/22 Probenecid 500 mg PO DAILY 03/08/14 04/05/22 Doxazosin [Cardura] 4 mg PO DAILY 12/18/14 04/05/22 Simvastatin [Zocor] 40 mg PO QPM 12/18/14 04/05/22 Loratadine 10 mg PO DAILY 06/21/16 04/05/22 HYDROcod/ACETAM 5/325 [Hobart 5/325] 1 ea PO Q6H PRN #15 tablet 02/03/17 04/05/22 Metoprolol Succinate [Toprol Xl] 50 mg PO DAILY 02/03/17 04/05/22 Warfarin Sodium [Coumadin] 7.5 mg PO DAILY 02/03/17 04/05/22 - Allergies Allergies/Adverse Reactions: Allergies Allergy/AdvReac Type Severity Reaction Status Date / Time No Known Drug Allergies Allergy Verified 03/05/22 16:16 - Social History Does the pt smoke?: No Smoking Status: Former smoker Does the pt drink ETOH?: No Does the pt have substance abuse?: No - Immunizations Immunizations are current?: Yes - POLST Patient has POLST: No PD ED PE NORMAL - Vitals Vital signs reviewed: Yes - General General: No acute distress, Other (elderly appearing) - HEENT HEENT: PERRL, EOMI, Ears normal, Moist mucous membranes, Pharynx benign, Other (ecchymosis R cheek. abrasion R parietal/frontal scalp) - Neck Neck: No bony TTP, Other (c collar in place) - Cardiac Cardiac: RRR - Respiratory Respiratory: No respiratory distress, Clear bilaterally - Abdomen Abdomen: Non tender, Non distended - Back Back: No spinal TTP - Derm Derm: Normal color, Warm and dry - Extremities Extremities: No deformity, Normal ROM s pain, Other (ecchymosis to L dorsal forearm. CSM intact all extremities) - Neuro Neuro: Other (AOX2) Eye Opening: Spontaneous Motor: Obeys Commands Verbal: Confused (dementia at baseline) GCS Score: 14 Results - Vitals Vitals: Vital Signs - 24 hr 05/19/23 05:53 Temperature 37 C Heart Rate 76 Respiratory 18 Rate Blood Pressure 154/86 H O2 Saturation 100 Oxygen O2 Source Room air PD Medical Decision Making - ED course ED course: modified trauma called upon my history ascertaining he is on coumadin. c collar placed at that time. CT head, max facial, and c spine ordered in addition to xrays of chest, pelvis and L forearm/elbow. cbc, abdominal panel, coags, type and screen ordered. tdap will be updated. plan to endorse to incoming daytime ED MD Dr. Mullins at 7am shift change. Departure - Departure Forms: PCP List
[2023-05-19] MEDS ORDERED: TETANUS/DIPHTHERIA/PERTUSSIS 0.5 ML SYRINGE IM ONE (06:18)
[2023-05-19 06:23] LABS: BASOPHILS % (AUTO) 0.5 %; EOSINOPHILS % (AUTO) 0.4 %; HCT - HEMATOCRIT 35.9 % (42.0-52.0); LYMPHOCYTES # (AUTO) 0.9 10^3/uL (1.5-3.5); LYMPHOCYTES % (AUTO) 12.1 %; MEAN CORPUSCULAR HEMOGLOBIN 33.8 pg (27.0-31.0); MEAN CORPUSCULAR HGB CONC 33.4 g/dL (32.0-36.0); MEAN CORPUSCULAR VOLUME 101.1 fL (80.0-94.0); MEAN PLATELET VOLUME 10.4 fL (7.4-11.4); MONOCYTES # (AUTO) 0.6 10^3/uL (0.0-1.0); MONOCYTES % (AUTO) 7.3 %; NEUTROPHILS # (AUTO) 6.1 10^3/uL (1.5-6.6); NEUTROPHILS % (AUTO) 79.2 %; PLT - PLATELET COUNT 113 10^3/uL (130-450); RED BLOOD COUNT 3.55 10^6/uL (4.70-6.10); RED CELL DISTRIBUTION WIDTH 12.9 % (12.0-15.0); WHITE BLOOD COUNT 7.7 x10^3/uL (4.8-10.8)
[2023-05-19 06:38] LABS: PARTIAL THROMBOPLASTIN TIME 32.2 secs (24.9-33.3)
[2023-05-19 06:41] LABS: ALBUMIN/GLOBULIN RATIO 1.6 (1.0-2.2); ALKALINE PHOSPHATASE 72 IU/L (42-121); ALT ALANINE AMINOTRANSFERASE 43 IU/L (10-60); AST ASPARTATE AMINOTRANSFERASE 40 IU/L (10-42); BILIRUBIN,TOTAL 0.4 mg/dL (0.2-1.0); BUN - BLOOD UREA NITROGEN 18 mg/dL (6-20); CALCIUM 8.9 mg/dL (8.5-10.3); CARBON DIOXIDE - CO2 27 mmol/L (21-32); CHLORIDE 107 mmol/L (101-111); CREATININE 0.9 mg/dL (0.6-1.3); ETOH - ETHANOL < 10.0 mg/dL; GFR - MDRD 80 (>89); GLUCOSE 130 mg/dL (74-104); LIPASE 16 U/L (11-82); SODIUM 141 mmol/L (135-145); TOTAL PROTEIN 6.5 g/dL (6.4-8.9)
[2023-05-19 06:42] LABS: PT - PROTHROMBIN TIME 20.6 secs (9.9-12.6)
--- NOTE | 2023-05-19 08:16 | CT Report ---
PROCEDURE: CERVICAL SPINE WO INDICATIONS: Neck trauma, midline tenderness TECHNIQUE: Noncontrast 3 mm thick sections acquired from the skull base to the T4 level. Sagittal and coronal r eformats were then constructed. For radiation dose reduction, the following was used: automated exp osure control, adjustment of mA and/or kV according to patient size. COMPARISON: None. FINDINGS: Image quality: Excellent. Bones: No fractures or dislocations. Visualized superior ribs are intact. Probable bone island, C5 vertebra. Cervical spondylosis with multilevel facet arthropathy, left greater than right. This resul ts in bony foraminal narrowing. Soft tissues: Prevertebral soft tissues are normal in thickness. No paravertebral hematomas. No ap ical pneumothoraces. IMPRESSION: 1. No acute cervical fracture or dislocation. 2. Cervical spondylosis, with facet arthropathy and bony foraminal narrowing. Reviewed by: Magan Coon MD on 05/19/2023 8:15 AM PDT Approved by: Magan Coon MD on 05/19/2023 8:15 AM PDT Station ID: [id number]
--- NOTE | 2023-05-19 08:23 | CT Report ---
PROCEDURE: HEAD WO INDICATIONS: GLF +HT TECHNIQUE: Noncontrast 4.5 mm thick angled axial sections acquired from the foramen magnum to the vertex. For r adiation dose reduction, the following was used: automated exposure control, adjustment of mA and/or kV according to patient size. COMPARISON: 11/14/2021 FINDINGS: Image quality: Excellent. CSF spaces: Basal cisterns are patent. No extra-axial fluid collections. Ventricles are normal in size and shape. Subcortical and periventricular hypodensities are consistent with microvascular ische gavin disease and age-related cerebral volume loss. Brain: No midline shift. No intracranial masses or hemorrhage. Jones-white matter interface is norm al. Skull and face: Calvarium and visualized facial bones are intact, without suspicious lesions. Sinuses: Visualized sinuses and mastoids are clear. IMPRESSION: 1. No acute intracranial abnormality. 2. Microvascular ischemic disease and age-related cerebral volume loss. Reviewed by: José Miguel Hall on 05/19/2023 8:22 AM PDT Approved by: José Miguel Hall on 05/19/2023 8:22 AM PDT Station ID: [id number]
--- NOTE | 2023-05-19 08:29 | CT Report ---
PROCEDURE: MAXILLOFACIAL WO INDICATIONS: Facial trauma TECHNIQUE: Noncontrast 1.5 mm thick axial images acquired from the mandible through the frontal sinuses, with co fely and sagittal reformatting. For radiation dose reduction, the following was used: automated ex posure control, adjustment of mA and/or kV according to patient size. COMPARISON: Head CT from today. FINDINGS: Image quality: Excellent. Bones and teeth: Orbital escoto are intact. Sinus escoto show no fracture or deformity. No displaced nasal bone fracture. The septum is intact. Visualized portions of the mandible demonstrate no fractu res or subluxation. Zygomatic arches are intact. Pterygoid plates are intact. Visualized portions of the skull base and auditory canals are intact. Sinuses: Paranasal sinuses are aerated, without fluid levels, mucosal thickening, or mucoceles. Mas toid air cells are aerated. Soft tissues: No edema, masses, or fluid collections. No enlarged lymph nodes. No soft tissue lace rations or debris. The carotid bulbs have atherosclerotic calcifications. Vascular: Visualized vascular structures appear normal in the absence of contrast. Bony vascular fo ramina and canals are intact. IMPRESSION: No acute traumatic abnormality of the facial bones. Reviewed by: José Miguel Hall on 05/19/2023 8:27 AM PDT Approved by: José Miguel Hall on 05/19/2023 8:27 AM PDT Station ID: [id number]
--- NOTE | 2023-05-19 08:30 | XRAY Report ---
PROCEDURE: Chest 1 View X-Ray INDICATIONS: modified trauma TECHNIQUE: One view of the chest was acquired. COMPARISON: None. FINDINGS: Surgical changes and devices: Status post median sternotomy. Lungs and pleura: No pleural effusions or pneumothorax. Lungs are clear. Mediastinum: Mediastinal contours appear normal. Heart size is enlarged. The aorta is tortuous. Den sity in the region of the right cardiophrenic angle likely represents a prominent pericardial fat pad or pericardial cyst. Bones and chest wall: No suspicious bony lesions. Overlying soft tissues appear unremarkable. IMPRESSION: No acute cardiopulmonary process. Cardiomegaly. Findings above correspond with preliminary findings by [facility]. Reviewed by: José Miguel Hall on 05/19/2023 8:29 AM PDT Approved by: José Miguel Hall on 05/19/2023 8:29 AM PDT Station ID: [id number]
--- NOTE | 2023-05-19 08:31 | XRAY Report ---
PROCEDURE: Pelvis 1 View INDICATIONS: modified trauma TECHNIQUE: 1 view(s) of the pelvis acquired. COMPARISON: None. FINDINGS: Bones: No fractures or dislocations. No suspicious bony lesions. Mild degenerative changes of bot h hips. Soft tissues: Visualized bowel gas pattern is normal. No suspicious soft tissue calcifications. IMPRESSION: No acute bony abnormality. Reviewed by: José Miguel Hall on 05/19/2023 8:30 AM PDT Approved by: José Miguel Hall on 05/19/2023 8:30 AM PDT Station ID: [id number]
--- NOTE | 2023-05-19 08:33 | XRAY Report ---
PROCEDURE: Elbow 2 View LT INDICATIONS: pain s/p fall yesterday or a couple days ago TECHNIQUE: 2 views of the elbow were acquired. COMPARISON: None. FINDINGS: Bones: No fractures or dislocations. No suspicious bony lesions. Soft tissues: No effusion. No suspicious soft tissue calcifications or masses. IMPRESSION: No acute bony abnormality. Findings above correspond with preliminary findings by [employer]. Reviewed by: José Miguel Hall on 05/19/2023 8:32 AM PDT Approved by: José Miguel Hall on 05/19/2023 8:32 AM PDT Station ID: [id number]
[2023-05-19 08:35] VITALS: BP 144/71; O2SAT 99
--- NOTE | 2023-05-19 08:36 | ED Physician Documentation ---
ED Addendum - Addendum Addendum: 05/19/23 08:[address] Whittaker at 7 AM shift change. Briefly 87-year-old gentleman on Plavix and warfarin status post remote aortic valve replacement presents after a fall with his . is at the bedside. Patient not complaining of anything and denies pain. Work-up in the emergency department consisted of a CBC showing modest chronic macrocytic anemia, INR 2.0, unremarkable CMP and alcohol levels. The following radiology studies were reviewed independently by me and I also reviewed the final reads: Chest x-ray showing cardiomegaly, otherwise negative 2 view of the left elbow was negative Left forearm x-ray was negative Pelvis x-ray was negative CT of the C-spine showing spondylosis and neuroforaminal narrowing, no trauma. Maxillofacial CT was negative Head CT was negative for traumatic findings. He did have chronic microvascular ischemic disease and age-related volume loss at the bedside and eager for discharge. Disposition: Discharged home Condition: Stable Diagnosis: 1. Dementia 2. Ground-level fall 3. Left elbow contusion 4. Head injury 5. Adequate anticoagulation on anticoagulant therapy
--- NOTE | 2023-05-19 08:43 | XRAY Report ---
PROCEDURE: Forearm LT INDICATIONS: pain s/p fall TECHNIQUE: 2 views of the forearm were acquired. COMPARISON: None. FINDINGS: Bones: No fractures or dislocations. No suspicious bony lesions. Soft tissues: No suspicious soft tissue calcifications or masses. Surgical clips are present within the soft tissues of the forearm. Vasculature has atherosclerotic calcifications. IMPRESSION: No acute bony abnormality. Findings above correspond with preliminary findings by [facility]. Reviewed by: José Miguel Hall on 05/19/2023 8:41 AM PDT Approved by: José Miguel Hall on 05/19/2023 8:41 AM PDT Station ID: [id number]
== END 2023-05-19 08:59 | disposition home or self-care (01) ==
LOC: ED 05:40
DX: S09.90XA Unspecified injury of head, initial encounter (principal); S50.02XA Contusion of left elbow, initial encounter; W18.30XA Fall on same level, unspecified, initial encounter; F03.90 Unspecified dementia, unspecified severity, without behavioral disturbance, psychotic disturbance, mood disturbance, and anxiety; I25.10 Atherosclerotic heart disease of native coronary artery without angina pectoris; E11.9 Type 2 diabetes mellitus without complications; I51.7 Cardiomegaly; Z23 Encounter for immunization; Z79.01 Long term (current) use of anticoagulants; Z79.02 Long term (current) use of antithrombotics/antiplatelets; Z79.899 Other long term (current) drug therapy; Z87.891 Personal history of nicotine dependence; Z95.1 Presence of aortocoronary bypass graft
CPT/HCPCS: 36415; 70450; 70486; 71045; 72125; 72170; 73070; 73090; 80053; 83690; 85025; 85610; 85730; 86850; 86900; 86901; 90471; 90715; 99284; G0480; 80320

== ENCOUNTER 2023-05-30 10:23 | Outpatient (CLI) | payer MEDICARE, OTHER ==
--- NOTE | 2023-05-30 21:10 | SLEEP CARE CONSULTATION ---
Information from patient questionnaire entered by Obi Chang. I have reviewed and concur with the information entered by Obi Chang. This document represents the service I personally performed and the decisions made by me, Olamide Davalos MD, [facility]. History of Present Illness Service Date and Time: 05/30/2023 1023 Previous diagnosis: Very Severe, Obstructive Sleep Apnea-Hypopnea Syndrome AHI: 74.9 (in 2006) Reason for follow up: annual (LAST SEEN 01/2022) Equipment type: CPAP (NEED SD CARD) Equipment obtained from: [employer] (getting supplies as needed) Mask style: Full face Prior sleep studies: Yes Year and Where: 2006 - [facility] Type of Sleep Study: Polysomnography HPI additional information: Mr. White was diagnosed to have very severe obstructive sleep apnea-hypopnea syndrome and returns today with his for a follow up of CPAP therapy. The patient purchased the device from [employer] and was fitted with a nasal mask. He used the ResMed AirSense 10 nightly and all through the night until a year ago. His says the patient is suffering from dementia and no longer understands that he has to use the CPAP. She continues to see him quit breathing at night. She complains that he is not sleeping at night. Further questioning revealed that he has been sleeping a lot during the day due to inactivity. Sleep Study - Results Type of Sleep Study: Polysomnography Prior sleep studies: Yes Year and Where: 2006 [facility] Subjective Initial Brewster Sleepiness Scale score: 14 (in 2006) Current Brewster Sleepiness Scale score: 24 (05/30/23) Allergies and Home Medications Drug allergies reviewed: Yes Home medication list reviewed: Yes Allergy and home medication list: Allergies No Known Drug Allergies Allergy (Verified 03/05/22 16:16) Review of Systems Review of systems same as previous: Yes Physical Exam Vital signs obtained and entered by: OBI Davis MA Blood Pressure: 124/78 (LEFT ARM) Cuff size: regular Heart Rate: 76 O2 Saturation: 95 Height: 5 ft 10 in Weight: 185 lb Body Mass Index: 26.5 BMI Classification: Overweight Impression and Plan IMPRESSION: 1. Obstructive Sleep Apnea-Hypopnea Syndrome, very severe (AHI was 74.9 in 2006), with the patient not using his CPAP anymore because of dementia. His thinks that he may be willing to use it again with a smaller mask. I will prescribe him new supplies and specify a nasal mask or nasal pillows. 2. Circadian rhythm disorder. Because of his dementia, the patient is not aware of the time of the day and sleeps intermittently throughout day and night. PLAN: 1. Prescription made for new CPAP supplies through [employer]. Hopefully, the company still has a local development technician that can come out to the patients home to fit him with a nasal mask. 2. Increase daytime activity so that he will sleep more at night. 3. Return in 2 3 months. Counseling Topics: Weight control, Activity level Prescriptions: Device supplies Follow up with Sleep Care in: 1-2 months Visit Type: In Office Other Participants: Spouse/Significant Other Time Spent with Patient (minutes): 15 Provider Statement: I spent 100% of the Face to Face Visit with the patient with greater than 50% spent counseling the patient and coordination of care.
[2023-05-30 21:18] VITALS: BP 124/78; O2SAT 95
== END 2023-05-30 10:24 | disposition home or self-care (01) ==
LOC: SC 10:23
PROVIDERS: ATTEND Internal Medicine Pulmonary Disease
DX: G47.33 Obstructive sleep apnea (adult) (pediatric) (principal); F03.918 Unspecified dementia, unspecified severity, with other behavioral disturbance; G47.27 Circadian rhythm sleep disorder in conditions classified elsewhere; E66.3 Overweight; Z68.26 Body mass index [BMI] 26.0-26.9, adult
CPT/HCPCS: 99212; G0463

== ENCOUNTER 2023-06-17 17:44 | Outpatient (CLI) | payer MEDICARE, OTHER | END 2023-06-17 23:59 | disposition EMS.NT | LOC: EMS 17:44 | DX: Z03.89 Encounter for observation for other suspected diseases and conditions ruled out (principal) ==

== ENCOUNTER 2023-07-12 05:47 | Outpatient (CLI) | payer MEDICARE, OTHER | END 2023-07-12 23:59 | disposition left against medical advice (07) | LOC: EMS 05:47 | DX: R09.89 Other specified symptoms and signs involving the circulatory and respiratory systems (principal); R60.0 Localized edema; Z79.01 Long term (current) use of anticoagulants ==

== ENCOUNTER 2023-07-22 00:09 | Outpatient (CLI) | payer MEDICARE, OTHER | END 2023-07-22 23:59 | disposition EMS.NT | LOC: EMS 00:09 | DX: S51.811A Laceration without foreign body of right forearm, initial encounter (principal); W01.0XXA Fall on same level from slipping, tripping and stumbling without subsequent striking against object, initial encounter; Y92.009 Unspecified place in unspecified non-institutional (private) residence as the place of occurrence of the external cause ==

== ENCOUNTER 2023-08-02 03:56 | Outpatient (CLI) | payer MEDICARE, OTHER | END 2023-08-02 23:59 | disposition EMS.NT | LOC: EMS 03:56 | DX: Z03.89 Encounter for observation for other suspected diseases and conditions ruled out (principal) ==

== ENCOUNTER 2023-08-07 01:49 | Outpatient (CLI) | payer MEDICARE, OTHER | END 2023-08-07 01:50 | disposition EMS.NT | LOC: EMS 01:49 | DX: Z03.89 Encounter for observation for other suspected diseases and conditions ruled out (principal) ==

== ENCOUNTER 2023-08-13 22:03 | Outpatient (CLI) | payer MEDICARE, OTHER | END 2023-08-13 22:04 | disposition EMS.NT | LOC: EMS 22:03 | DX: Z03.89 Encounter for observation for other suspected diseases and conditions ruled out (principal) ==

== ENCOUNTER 2023-08-29 14:29 | Outpatient (CLI) | payer MEDICARE, OTHER | END 2023-08-29 14:30 | disposition EMS.NT | LOC: EMS 14:29 | DX: Z03.89 Encounter for observation for other suspected diseases and conditions ruled out (principal) ==

== ENCOUNTER 2023-09-09 00:58 | Outpatient (CLI) | payer MEDICARE, OTHER | END 2023-09-09 23:59 | disposition EMS.NT | LOC: EMS 00:58 | DX: Z03.89 Encounter for observation for other suspected diseases and conditions ruled out (principal) ==

== ENCOUNTER 2023-09-14 23:55 | Outpatient (CLI) | payer MEDICARE, OTHER | END 2023-09-14 23:56 | disposition EMS.NT | LOC: EMS 23:55 | DX: Z03.89 Encounter for observation for other suspected diseases and conditions ruled out (principal) ==

== ENCOUNTER 2023-09-21 07:50 | Outpatient (CLI) | payer MEDICARE, OTHER | END 2023-09-21 07:51 | disposition EMS.NT | LOC: EMS 07:50 | DX: Z03.89 Encounter for observation for other suspected diseases and conditions ruled out (principal); Z91.81 History of falling ==

== ENCOUNTER 2023-09-26 10:14 | Outpatient (CLI) | payer MEDICARE, OTHER | END 2023-09-26 23:59 | disposition EMS.NT | LOC: EMS 10:14 | DX: Z74.2 Need for assistance at home and no other household member able to render care (principal) ==

== ENCOUNTER 2023-09-27 13:25 | Outpatient (CLI) | payer MEDICARE, OTHER | END 2023-09-27 23:59 | disposition EMS.NT | LOC: EMS 13:25 | DX: Z03.89 Encounter for observation for other suspected diseases and conditions ruled out (principal) ==

== ENCOUNTER 2023-10-08 11:56 | Outpatient (CLI) | payer MEDICARE, OTHER | END 2023-10-08 23:59 | disposition EMS.NT | LOC: EMS 11:56 | DX: R29.6 Repeated falls (principal) ==

== ENCOUNTER 2023-10-12 18:19 | Outpatient (CLI) | payer MEDICARE, OTHER | END 2023-10-12 18:20 | disposition EMS.NT | LOC: EMS 18:19 | DX: Z03.89 Encounter for observation for other suspected diseases and conditions ruled out (principal) ==

== ENCOUNTER 2023-10-14 15:19 | Outpatient (CLI) | payer MEDICARE, OTHER | END 2023-10-14 23:59 | disposition EMS.NT | LOC: EMS 15:19 | DX: Z03.89 Encounter for observation for other suspected diseases and conditions ruled out (principal) ==

== ENCOUNTER 2023-11-11 16:02 | Outpatient (CLI) | payer MEDICARE, OTHER | END 2023-11-11 23:59 | disposition EMS.NT | LOC: EMS 16:02 | DX: Z03.89 Encounter for observation for other suspected diseases and conditions ruled out (principal) ==

== ENCOUNTER 2023-11-16 17:10 | Outpatient (CLI) | payer MEDICARE, OTHER | END 2023-11-16 23:59 | disposition EMS.NT | LOC: EMS 17:10 | DX: Z03.89 Encounter for observation for other suspected diseases and conditions ruled out (principal) ==